=== PATIENT | male | born 1940 | race Caucasian/White ===

== ENCOUNTER 2020-09-21 08:19 | Emergency (ER) | payer MEDICARE ==
[2020-09-21 08:36] VITALS: RESP 18
[2020-09-21] MEDS ORDERED: MORPHINE SULFATE 4 MG/ML SYRINGE IM STA (08:49)
[2020-09-21] MEDS ORDERED: KETOROLAC 15 MG/ML 1 ML VIAL IM STA (08:49)
--- NOTE | 2020-09-21 08:52 | ED ---
General Adult HPI - General Source: patient, RN notes reviewed, old records reviewed Mode of arrival: wheelchair Limitations: no limitations <Anne Moerno - Last Filed: 09/21/20 10:49> <Karen Leon - Last Filed: 09/28/20 23:55> - General Chief complaint: Extremity Injury, Lower Stated complaint: poss pinched nerve Time Seen by Provider: 09/21/20 08:38 - History of Present Illness Initial comments: 80-year-old male presents emergency with 3 days of pain from his right thigh and groin. He reports he was seen at [facility] earlier this week and was diagnosed with a pinched nerve. Patient also reports that 2 weeks ago he received injections for varicose veins of [facility] vein [place]. Patient reports that he has no other falls or trauma to his back. He reports he is having episodes of pain a few weeks ago but that seemed to resolve. Patient states that he's had no fevers or chills. Denies any change in urination or bowel habits. (Anne Moreno) - Related Data Home Medications Medication Instructions Recorded Confirmed Ascorbic Acid [Vitamin C] 500 mg PO DAILY 09/21/20 09/25/20 Aspirin 81 mg PO DAILY 09/21/20 09/25/20 Cholecalciferol [Vitamin D3 (25 1,000 unit PO DAILY 09/21/20 09/25/20 Mcg = 1000 Iu)] Clopidogrel [Plavix] 75 mg PO DAILY 09/21/20 09/25/20 Co Q-10 30mg 30 mg PO TID 09/21/20 09/25/20 Cyclobenzaprine [Flexeril] 5 mg PO HS 09/21/20 09/25/20 Loratadine [Claritin] 10 mg PO DAILY 09/21/20 09/25/20 Magnesium Oxide [Mag-Ox] 400 mg PO DAILY 09/21/20 09/25/20 Metoprolol Succinate [Toprol XL] 25 mg PO DAILY 09/21/20 09/25/20 Multivitamins, Thera [Multivitamin 1 tab PO DAILY 09/21/20 09/25/20 (formulary)] Nitroglycerin Sl Tabs [Nitrostat] 0.4 mg SUBLINGUAL Q5M PRN 09/21/20 09/25/20 [place]-3 Acid Ethyl Esters [Lovaza] 2 gm PO BID 09/21/20 09/25/20 [place]-3/Dha/Epa/Fish Oil [Fish Oil 1 cap PO DAILY 09/21/20 09/25/20 500 mg Softgel] Omeprazole [PriLOSEC] 20 mg PO DAILY 09/21/20 09/25/20 Rosuvastatin [Crestor] 20 mg PO DAILY 09/21/20 09/25/20 glipiZIDE [Glucotrol] 10 mg PO DAILY 09/21/20 09/25/20 Insulin NPH Human Isophane See Protocol SQ HS 09/26/20 09/26/20 [NovoLIN N] Insulin Regular, Human [NovoLIN R] See Protocol SQ AC-TID 09/26/20 09/26/20 Previous Rx's Medication Instructions Recorded Diazepam [Valium] 5 mg PO Q8H PRN 3 Days #9 tab 09/21/20 HYDROcodone/APAP 5-325MG [[place] 1 tab PO Q4HR PRN 3 Days #18 tab 09/21/20 5-325] predniSONE [Deltasone] 20 mg PO DIRECTED #24 tab 09/27/20 predniSONE [Deltasone] 20 mg PO DAILY #24 tab 09/27/20 Allergies Allergy/AdvReac Type Severity Reaction Status Date / Time No Known Allergies Allergy Verified 09/25/20 18:32 Review of Systems ROS Other: All systems not noted in ROS Statement are negative. <Anne Moreno - Last Filed: 09/21/20 10:49> ROS Other: All systems not noted in ROS Statement are negative. <Karen Leon - Last Filed: 09/28/20 23:55> ROS Statement: Those systems with pertinent positive or pertinent negative responses have been documented in the HPI. Past Medical History Past Medical History: Diabetes Mellitus Past Surgical History: Back Surgery, Heart Catheterization With Stent Additional Past Surgical History / Comment(s): stents x 2, skin CA removed, Past Psychological History: No Psychological Hx Reported Smoking Status: Former smoker Past Alcohol Use History: None Reported Past Drug Use History: None Reported <Anne Moreno - Last Filed: 09/21/20 10:49> General Exam Limitations: no limitations General appearance: alert, in no apparent distress Head exam: Present: atraumatic, normocephalic, normal inspection Eye exam: Present: normal appearance, PERRL, EOMI. Absent: scleral icterus, conjunctival injection, periorbital swelling ENT exam: Present: normal exam, mucous membranes moist Neck exam: Present: normal inspection. Absent: tenderness, meningismus, lymphadenopathy Respiratory exam: Present: normal lung sounds bilaterally. Absent: respiratory distress, wheezes, rales, rhonchi, stridor Cardiovascular Exam: Present: regular rate, normal rhythm, normal heart sounds. Absent: systolic murmur, diastolic murmur, rubs, gallop, clicks GI/Abdominal exam: Present: soft, normal bowel sounds. Absent: distended, tende rness, guarding, rebound, rigid Extremities exam: Present: normal inspection, full ROM, normal capillary refill. Absent: tenderness, pedal edema, joint swelling, calf tenderness Back exam: Present: normal inspection, tenderness (Patient has tenderness over the lumbar spine) Neurological exam: Present: alert, oriented X3, CN II-XII intact Psychiatric exam: Present: normal affect, normal mood Skin exam: Present: warm, dry, intact, normal color. Absent: rash <Anne Moreno - Last Filed: 09/21/20 10:49> - General Exam Comments Initial Comments: 80 year old male no distress. (Anne Moreno) Course Vital Signs 09/21/20 09/21/20 08:31 11:07 Temperature 98.0 F 97.7 F Pulse Rate 79 72 Respiratory 18 18 Rate Blood Pressure 151/71 136/72 O2 Sat by Pulse 98 98 Oximetry Medical Decision Making - Radiology Data Radiology results: report reviewed <Anne Moreno - Last Filed: 09/21/20 10:49> <Karen Leon - Last Filed: 09/28/20 23:55> - Medical Decision Making 80-year-old male presents emergency department today with a few days of right- sided pain with radiation down the right leg. He reports it seems to more concerning on the leg rather than his back. Patient's sinus with pinched nerve last week. He is been taking steroids and muscle relaxers with no relief of symptoms. Is given IM pain medication. They were concerned of possible blood clot patient's history of vein injections. Leg is not red or swollen. at this time but ultrasound was completed and negative for DVT. Computed tomography scan shows no evidence of compression fractures. Does have evidence of fo raminal narrowing on the right lumbar spine area. I discussed Patient is to follow-up with orthopedic back specialist. Discussed return parameters. We'll discharge Patient with pain medication. (Anne Moreno) I was available for consultation in the emergency department. The history and physical exam were done by the midlevel provider. I was consulted for this patients care. I reviewed the case with the midlevel provider and based on their presentation of the patient, I agree with the assessment, medical decision making and plan of care as documented. Chart was dictated using [email or web address] dictation software. Attempts were made to correct any dictation errors however some typographical errors may persist. Patient seen during the Covid-19 pandemic. (Karen Leon) - Radiology Data Loss of normal curvature with multilevel degenerative changes to tell above. Tension and lumbar levels of increased right-sided general changes are present. No paraspinal masses are identified. Lumbar segments are intact. Ultrasound is negative for DVT in the right leg (Anne Moreno) Disposition Is patient prescribed a controlled substance at d/c from ED?: Yes If prescribed controlled substance>3 days was MAPS reviewed?: Prescribed <3 Days If opioid is for acute pain is fill amount 7 days or less?: Yes If Rx opioid, was Start Talking consent form obtained?: Yes Time of Disposition: 10:52 <Anne Moreno - Last Filed: 09/21/20 10:49> <Karen Leon - Last Filed: 09/28/20 23:55> Clinical Impression: Right sided sciatica Disposition: HOME SELF-CARE Condition: Good Instructions (If sedation given, give patient instructions): Sciatica (ED), Lumbar Radiculopathy (ED) Additional Instructions: Take the medications as prescribed. Recommended following up with orthopedic back specialist. Return to the ED if any alarming signs or symptoms occur. Prescriptions: HYDROcodone/APAP 5-325MG [[place] 5-325] 1 tab PO Q4HR PRN 3 Days #18 tab PRN Reason: Pain Diazepam [Valium] 5 mg PO Q8H PRN 3 Days #9 tab PRN Reason: Muscle Spasm Referrals: Bladimir Villalba MD [Primary Care Provider] - 1-2 days Cristopher Artis DO [Doctor of Osteopathic Medicine] - 1-2 days Pool Pryor DO [Doctor of Osteopathic Medicine] - 1-2 days
--- NOTE | 2020-09-21 09:41 | US ---
EXAMINATION TYPE: US venous doppler duplex LE RT DATE OF EXAM: 09/21/2020 9:29 AM COMPARISON: NONE CLINICAL HISTORY: r/o dvt. Pain right thigh x3 days. Patient denies leg swelling. SIDE PERFORMED: Right TECHNIQUE: The lower extremity deep venous system is examined utilizing real time linear array sonog bert with graded compression, doppler sonography and color-flow sonography. VESSELS IMAGED: Common Femoral Vein Deep Femoral Vein Greater Saphenous Vein * Femoral Vein Popliteal Vein Small Saphenous Vein * Proximal Calf Veins (* superficial vessels) Right Leg: Negative for DVT IMPRESSION: No evidence for DVT at this time.
--- NOTE | 2020-09-21 10:29 | CT ---
EXAMINATION TYPE: CT lumbar spine wo con DATE OF EXAM: 09/21/2020 9:49 AM COMPARISON: None. HISTORY: Right leg pain and numbness. CT DLP: 848.3 mGycm Automated exposure control for dose reduction was used. Unenhanced CT of the lumbar spine was performed. Bone and soft tissue window settings are submitted as well as coronal and sagittal reconstructions. There are 5 lumbar-type vertebra. There is levoconvex scoliosis centered at L2-L3 level. There is mod erate to severe disc space narrowing with some ossific bridging at the L2-L3 level. Loss of normal lg mbar lordosis on sagittal images. Vertebral body heights maintained. Mild to moderate disc space narr owing with posterior spur disc complex at L4-L5 level. 2 small scattered hemangiomas including larges t hemangioma at the L5 vertebra. Review of axial images show T12-L1 level to appear within normal limits. Axial images at the L1-L2 level show mild marked facet degenerative changes and mild to moderate broa d disc bulge with effacement of anterior and posterior lateral thecal sac. There is mild to moderate left-sided anterior inferior neural foraminal narrowing. Axial images at L2-L3 level shows some ossific fusion with posterior bony projection is effacing ante rior thecal sac. Moderate facet arthropathy right greater than left. There is asymmetric mild right s ided neural foraminal narrowing. Axial images at the L3-L4 level show moderate to advanced right greater than left facet arthropathy w ith right foraminal/lateral disc protrusion on axial image 52 causing moderate inferior neural forami nal narrowing. Left-sided neural foramen is patent. Axial images at the L4-L5 level show [id number] facet arthropathy bilaterally. Posterior spurri ng greatest on the left effaces anterolateral thecal sac and causes asymmetric mild to moderate left greater than right bilateral neural foraminal narrowing. Axial images at the L5-S1 levels show mild facet arthropathy bilaterally. Mild to moderate calcified plaque of the abdominal aorta extends into branch vessels. IMPRESSION: Loss of normal curvature with multilevel degenerative changes as detailed above. Attentio n to mid lumbar levels with increased right-sided degenerative changes are present. No paraspinal masses are identified. Lumbar segments are intact.
[2020-09-21] MEDS ORDERED: ACET/COD 300 MG/30 MG STARTER PACK 6 TAB BTL PO STA (10:49)
[2020-09-21 11:08] VITALS: BP 136/72; PULSE 72; TEMP 97.7
== END 2020-09-21 11:08 | disposition home or self-care (01) ==
LOC: EC 08:19
DX: M54.31 Sciatica, right side (principal); M79.651 Pain in right thigh; Z87.891 Personal history of nicotine dependence
CPT/HCPCS: 99284 ×2; 96372 ×3; 93971; 72131; J2270; J1885

== ENCOUNTER 2020-09-25 16:15 | Inpatient (IN) | payer MEDICARE ==
[2020-09-25] MEDS ORDERED: SODIUM CHLORIDE 0.9% 1,000 ML IV STA (16:35)
--- NOTE | 2020-09-25 17:18 | ED ---
General Adult HPI - General Chief complaint: Back Pain/Injury Stated complaint: Back Pain Time Seen by Provider: 09/25/20 16:34 Source: patient Mode of arrival: wheelchair Limitations: no limitations - History of Present Illness Initial comments: Dictation was produced using [employer] dictation software. please excuse any grammatical, word or spelling errors. This patient was cared for during a federal and state declared state of emergency secondary to Covid 19 Chief Complaint: 80-year-old male presents today for worsening back pain History of Present Illness: Is a 80-year-old male he has past medical history of back surgery. He states that he's been dealing with worsening back pain for the last several days now. Patient was seen here in our emergency department 4 days ago where lumbar CT and venous Doppler study was obtained. Lumbar CT did not show an acute processes however did show multilevel degenerative changes. He w as given medications and outpatient follow-up with spine surgeon. Patient states that his pain recurred and he went to [facility] were CT was also performed and found to be the same without any acute processes. He is given follow-up with neuro spine surgery. Patient denies any saddle anesthesia, no stool or bladder incontinence. The ROS documented in this emergency department record has been reviewed and confirmed by me. Those systems with pertinent positive or negative responses have been documented in the HPI. All other systems are other negative and/or noncontributory. PHYSICAL EXAM: General Impression: Alert and oriented x3, not in acute distress HEENT: Normocephalic atraumatic, extra-ocular movements intact, pupils equal and reactive to light bilaterally, mucous membranes moist. Cardiovascular: Heart regular rate and rhythm Chest: Able to complete full sentences, no retractions, no tachypnea Abdomen: abdomen soft, non-tender, non-distended, no organomegaly Musculoskeletal: Pulses present and equal in all extremities, no peripheral edema, positive straight leg test, tenderness to palpation over the right lower back Motor: no focal deficits noted Neurological: CN II-XII grossly intact, no focal motor or sensory deficits noted Skin: Intact with no visualized rashes Psych: Normal affect and mood ED course: 80-year-old male presents today with back pain. Patient was not tolerating his pain on outpatient basis and could not get a sooner appointment with autism motor specialist. He does have a family member that works at this and was encouraged to come to the emergency room for admission. Patient denies any red flag symptoms at this time. Case is discussed with Dr. Morgan who got in contact with Dr. rPyor from spine surgery who will be available tomorrow for con sultation. Patient be admitted to [facility] hospitalist group for pain control and orthopedic spine surgery will be consulted. - Related Data Home Medications Medication Instructions Recorded Confirmed Ascorbic Acid [Vitamin C] 500 mg PO DAILY 09/21/20 09/21/20 Aspirin 81 mg PO DAILY 09/21/20 09/21/20 Cholecalciferol [Vitamin D3 (25 1,000 unit PO DAILY 09/21/20 09/21/20 Mcg = 1000 Iu)] Clopidogrel [Plavix] 75 mg PO DAILY 09/21/20 09/21/20 Co Q-10 30mg 30 mg PO TID 09/21/20 09/21/20 Cyclobenzaprine [Flexeril] 5 mg PO HS 09/21/20 09/21/20 Humulin (Unknown) 1 dose SQ DIRECTED 09/21/20 09/21/20 Insulin Detemir [Levemir Flextouch] 30 units SQ BID 09/21/20 09/21/20 Loratadine [Claritin] 10 mg PO DAILY 09/21/20 09/21/20 Magnesium Oxide [Mag-Ox] 400 mg PO DAILY 09/21/20 09/21/20 Metoprolol Succinate [Toprol XL] 25 mg PO DAILY 09/21/20 09/21/20 Multivitamins, Thera [Multivitamin 1 tab PO DAILY 09/21/20 09/21/20 (formulary)] Nitroglycerin Sl Tabs [Nitrostat] 0.4 mg SUBLINGUAL Q5M PRN 09/21/20 09/21/20 [place]-3 Acid Ethyl Esters [Lovaza] 2 gm PO BID 09/21/20 09/21/20 [place]-3/Dha/Epa/Fish Oil [Fish Oil 1 cap PO DAILY 09/21/20 09/21/20 500 mg Softgel] Omeprazole [PriLOSEC] 20 mg PO DAILY 09/21/20 09/21/20 Rosuvastatin [Crestor] 20 mg PO DAILY 09/21/20 09/21/20 glipiZIDE [Glucotrol] 10 mg PO DAILY 09/21/20 09/21/20 methylPREDNISolone [Medrol Dose See Taper PO DIRECTED 09/21/20 09/21/20 Pack] Previous Rx's Medication Instructions Recorded Diazepam [Valium] 5 mg PO Q8H PRN 3 Days #9 tab 09/21/20 HYDROcodone/APAP 5-325MG [[place] 1 tab PO Q4HR PRN 3 Days #18 tab 09/21/20 5-325] Lidocaine 5% Patch [Lidoderm] 1 patch TOPICAL DAILY #30 patch 09/21/20 Allergies Allergy/AdvReac Type Severity Reaction Status Date / Time No Known Allergies Allergy Verified 09/25/20 16:33 Review of Systems ROS Statement: Those systems with pertinent positive or pertinent negative responses have been documented in the HPI. ROS Other: All systems not noted in ROS Statement are negative. Past Medical History Past Medical History: Diabetes Mellitus History of Any Multi-Drug Resistant Organisms: None Reported Past Surgical History: Back Surgery, Heart Catheterization With Stent Additional Past Surgical History / Comment(s): stents x 2, skin CA removed, Past Psychological History: No Psychological Hx Reported Smoking Status: Former smoker Past Alcohol Use History: None Reported Past Drug Use History: None Reported General Exam Limitations: no limitations Course Vital Signs 09/25/20 16:27 Temperature 98.2 F Pulse Rate 85 Respiratory 18 Rate Blood Pressure 144/76 O2 Sat by Pulse 98 Oximetry Disposition Clinical Impression: Back pain Disposition: ADMITTED IP TO THIS HOSP Condition: Fair Referrals: Bladimir Villalba MD [Primary Care Provider] - 1-2 days Decision Time: 17:21
[2020-09-25] MEDS ORDERED: NALOXONE 0.4 MG/ML 1 ML VIAL IV PRN (17:19)
[2020-09-25] MEDS ORDERED: MORPHINE SULFATE 4 MG/ML SYRINGE IV PRN (17:19)
[2020-09-25] MEDS ORDERED: ONDANSETRON 4 MG/2 ML VIAL IVP PRN (17:19)
[2020-09-25] MEDS ORDERED: ACETAMINOPHEN TAB 325 MG TAB PO PRN (17:19)
[2020-09-25 17:23] LABS: Basophils % (A) 0 %; Eosinophils # (A) 0.1 k/uL (0-0.7); Eosinophils % (A) 1 %; HGB 15.2 gm/dL (13.0-17.5); Lymphocytes # (A) 1.7 k/uL (1.0-4.8); Lymphocytes % (A) 17 %; MCH 30.7 pg (25.0-35.0); MCHC 34.5 g/dL (31.0-37.0); Mean Platelet Volume 7.2; Monocytes # (A) 0.6 k/uL (0-1.0); Monocytes % (A) 6 %; Neutrophils # (A) 7.1 k/uL (1.3-7.7); Neutrophils % (A) 73 %; Platelet Count 163 k/uL (150-450); RBC 4.94 m/uL (4.30-5.90); RDW 12.8 % (11.5-15.5); WBC 9.7 k/uL (3.8-10.6)
[2020-09-25 17:32] LABS: INR 0.9 (<1.2); Partial Thromboplastin Time 25.9 sec (22.0-30.0); Prothrombin Time 9.9 sec (9.0-12.0)
[2020-09-25 17:37] LABS: Calcium 9.8 mg/dL (8.4-10.2); Potassium 4.8 mmol/L (3.5-5.1)
--- NOTE | 2020-09-25 18:29 | XR ---
EXAMINATION TYPE: XR chest 1V portable DATE OF EXAM: 09/25/2020 COMPARISON: NONE HISTORY: Back pain TECHNIQUE: Single view FINDINGS: Heart is normal. Lungs are clear. Diaphragm is normal. Bony thorax appears normal. Pulmonar y vascularity is normal. IMPRESSION: Normal chest. Normal heart.
[2020-09-25] MEDS: SODIUM CHLORIDE 0.9% 1,000 ML IV SCH (18:33)
[2020-09-25] MEDS ORDERED: diazePAM 5 MG TAB PO PRN (19:35)
[2020-09-25] MEDS ORDERED: NITROGLYCERIN SL TABS 0.4 MG TAB SUBLINGUAL PRN (19:35)
[2020-09-25] MEDS ORDERED: TEMAZEPAM 15 MG CAP PO PRN (19:38)
[2020-09-25] MEDS ORDERED: HYDROmorphone 0.5 MG/0.5 ML SYRINGE IVP PRN (19:38)
[2020-09-25 20:42] LABS: Glucose,Whole Blood 209 mg/dL (75-99)
[2020-09-25] MEDS: methylPREDNISolone SOD SUCCI 125 MG/2 ML VIAL IV SCH (20:44)
[2020-09-25] MEDS: NON FORMULARY DRUG (Omega-3 Acid Ethyl Esters [Lovaza] 1 GM Capsule) PO SCH (21:11)
[2020-09-25] MEDS: INSULIN DETEMIR (LEVEMIR) 100 UNIT/ML SYR SQ SCH (21:19)
[2020-09-25] MEDS: HEPARIN SODIUM,PORCINE 5,000 UNIT/ML 1 ML VIAL SQ SCH (21:21)
[2020-09-25] MEDS: HYDROcodone/APAP 5-325MG 1 EACH TAB PO PRN (21:22)
[2020-09-25] MEDS: CYCLOBENZAPRINE 5 MG TAB PO SCH (21:22)
[2020-09-25 21:30] LABS: Appearance,Urine Clear (Clear); Bilirubin,Urine Negative (Negative); Blood,Urine Small (Negative); Color,Urine Light Yellow; Glucose,Urine (UA) 3+ (Negative); Hyaline Casts,Urine 3 /lpf (0-2); Ketones,Urine Negative (Negative); Leukocyte Esterase,Urine Negative (Negative); Mucus,Urine Rare /hpf; Nitrite,Urine Negative (Negative); PH, Urine 5.5 (5.0-8.0); Protein,Urine 1+ (Negative); RBC,Urine 2 /hpf (0-5); Specific Gravity,Urine 1.012 (1.001-1.035); Urobilinogen,Urine <2.0 mg/dL (<2.0); WBC,Urine <1 /hpf (0-5)
[2020-09-25] MEDS ORDERED: CO Q10 PO SCH (22:00)
[2020-09-26] MEDS: methylPREDNISolone SOD SUCCI 125 MG/2 ML VIAL IV SCH ×4 (02:13→18:41)
--- NOTE | 2020-09-26 02:47 | HP ---
HISTORY AND PHYSICAL CHIEF COMPLAINTS: Back pain and right leg pain. HISTORY OF PRESENT ILLNESS: This 80-year-old gentleman with a past medical history of multiple medical problems including diabetes mellitus, history of back surgery, history of CAD, stent being followed Dr. Bladmiir Villalba in the outpatient setting was admitted to [facility] with complaints of back pain, which was radiating to the right leg for the last 7 days. Patient unable to lie down. Patient is sitting in a chair for the last 4 days last week and the patient apparently had previous surgery from [place] back surgeon about 8 years ago. The patient had recently lumbar CT scan about 4 days ago in the ER which showed loss of normal compression and multilevel DJD. No paraspinal masses were noted. The patient admitted for further evaluation and treatment. There is no history of fever, rigors. No history of headache, loss of consciousness or seizures. PAST MEDICAL HISTORY: History of diabetes mellitus, back surgery, CAD stent, history of nicotine dependence. MEDICATIONS: Medications prior to admission, home medications are: 1. Valium. 2. Flexeril. 3. Toprol. 4. Hydrocodone. 5. Vitamin C. 6. Crestor. 7. Prilosec. 8. Fish oil. 9. Lovaza. 10.Nitrostat. 11.Multivitamins. 12.Magnesium oxide. 13.Claritin. 14.Glucotrol. 15.Levemir. 16.Plavix. 17.Vitamin D3. 18.Aspirin. ALLERGIES: None. FAMILY HISTORY: No history of heart disease or strokes in the family. SOCIAL HISTORY: No history of smoking. No history of alcohol intake. REVIEW OF SYSTEMS: ENT: No diminished hearing or diminished vision. CARDIOVASCULAR SYSTEM: No angina. RESPIRATORY SYSTEM: No cough. GI: As mentioned earlier. : No dysuria. NERVOUS SYSTEM: No numbness or weakness. ALLERGY/IMMUNOLOGY: No asthma or hayfever. MUSCULOSKELETAL: As mentioned earlier. HEMATOLOGY/ONCOLOGY: No history of anemia. ENDOCRINE: No history of diabetes or hypothyroidism. CONSTITUTIONAL: As mentioned earlier. DERMATOLOGY: Negative. RHEUMATOLOGY: Negative. PSYCHIATRY: As mentioned earlier. PHYSICAL EXAMINATION: The patient is alert and oriented x3. Pulse is 85, blood pressure 144/76, respiration 18, temperature 98.2, pulse ox 98% on room air. HEENT: Conjunctivae normal. NECK: No jugular venous distention. CARDIOVASCULAR: S1, S2 muffled. RESPIRATORY: Breath sounds diminished at the bases. No rhonchi, no crackles. ABDOMEN: Soft. Nontender. No mass palpable. LEGS: Straight leg raising test is positive on the right side. NERVOUS SYSTEM: No focal motor or sensory deficits. LYMPHATICS: No lymphadenopathy of the neck, axillae or groin. SKIN: No ulcer, rash or bleeding. JOINTS: No active deforming arthropathy. LABS: CBC within normal limits. Sodium 134 and creatinine is 1.77. The baseline creatinine was not available. ASSESSMENT: 1. Severe back pain, degenerative joint disease and right radiculopathy. 2. Severe gait dysfunction. 3. Failure of outpatient treatment. 4. Hyponatremia. 5. Increased creatinine with acute renal failure. 6. Diabetes mellitus type 2 uncontrolled with hyperglycemia. 7. History of back surgery. 8. History of coronary artery disease, stent. 9. Remote history of nicotine dependence. 10.FULL CODE. RECOMMENDATIONS AND DISCUSSION: This 80-year-old gentleman who presented with multiple complex medical issues, we will monitor the patient closely. Continue the current medications, continue symptomatic treatment. Will initiate intravenous steroids and I would also recommend insulin drip also if the sugars are more than 300. Otherwise symptomatic treatment. Dr. Pryor will be consulted. Resume the home medications. DVT prophylaxis. Prognosis guarded because of multiple complex medical issues. Further recommendations to follow. A copy of dictation forwarded to Dr. Jm Villalba who is the primary physician. MMODL / IJN: [id number] /
[2020-09-26 06:48] LABS: Basophils % (A) 0 %; Eosinophils % (A) 0 %; HCT 42.8 % (39.0-53.0); HGB 14.6 gm/dL (13.0-17.5); Lymphocytes # (A) 0.6 k/uL (1.0-4.8); Lymphocytes % (A) 6 %; MCH 30.3 pg (25.0-35.0); MCV 89.2 fL (80.0-100.0); Mean Platelet Volume 7.2; Monocytes # (A) 0.2 k/uL (0-1.0); Monocytes % (A) 2 %; Neutrophils # (A) 9.3 k/uL (1.3-7.7); Neutrophils % (A) 91 %; Platelet Count 138 k/uL (150-450); RDW 12.7 % (11.5-15.5); WBC 10.2 k/uL (3.8-10.6)
[2020-09-26 06:58] LABS: Calcium 9.2 mg/dL (8.4-10.2)
[2020-09-26 07:01] LABS: Glucose,Whole Blood 372 mg/dL (75-99)
[2020-09-26] MEDS: INSULIN DETEMIR (LEVEMIR) 100 UNIT/ML SYR SQ SCH (08:36)
[2020-09-26] MEDS: CHOLECALCIFEROL 1,000 UNIT TAB PO SCH (08:39)
[2020-09-26] MEDS: ATORVASTATIN 40 MG TAB PO SCH (08:39)
[2020-09-26] MEDS: MAGNESIUM OXIDE 400 MG TAB PO SCH (08:39)
[2020-09-26] MEDS: CLOPIDOGREL 75 MG TAB PO SCH (08:39)
[2020-09-26] MEDS: ASPIRIN 81 MG PO SCH (08:40)
[2020-09-26] MEDS: LORATADINE 10 MG TAB PO SCH (08:40)
[2020-09-26] MEDS: NON FORMULARY DRUG (Omega-3 Acid Ethyl Esters [Lovaza] 1 GM Capsule) PO SCH ×2 (08:45→21:27)
[2020-09-26] MEDS: METOPROLOL SUCCINATE (ER) 25 MG TAB.ER.24H PO SCH (08:50)
[2020-09-26] MEDS: glipiZIDE 10 MG TAB PO SCH (08:51)
[2020-09-26] MEDS: ASCORBIC ACID 500 MG TAB PO SCH (08:51)
[2020-09-26] MEDS: HEPARIN SODIUM,PORCINE 5,000 UNIT/ML 1 ML VIAL SQ SCH ×2 (08:51→21:46)
[2020-09-26] MEDS: MULTIVITAMINS, THERA 1 EACH TAB PO SCH (08:51)
[2020-09-26] MEDS ORDERED: NON FORMULARY DRUG (Omega-3/Dha/Epa/Fish Oil [Fish Oil 500 Mg Softgel] 1 EACH Capsule) PO SCH (09:00)
[2020-09-26] MEDS ORDERED: SODIUM POLYSTYRENE SULFONATE 15 GM/60 ML BOTTLE PO STA (10:51)
[2020-09-26] MEDS ORDERED: INSULIN ASPART (NovoLOG) 100 UNIT/ML VIAL SQ SCH (12:30)
[2020-09-26 12:57] LABS: Glucose,Whole Blood 569 mg/dL (75-99)
[2020-09-26] MEDS ORDERED: INSULIN REGULAR BOLUS (FROM DRIP BAG) IV PRN (13:07)
[2020-09-26] MEDS ORDERED: INSULIN REGULAR 100 UNIT in SODIUM CHLORIDE 0.9% 100 ML IV SCH (13:15)
[2020-09-26] MEDS ORDERED: INSULIN REGULAR BOLUS (FROM DRIP BAG) IV ONE (13:29)
[2020-09-26 14:11] LABS: Glucose,Whole Blood >600 mg/dL (75-99)
[2020-09-26] MEDS: INSULIN REGULAR 100 UNIT in SODIUM CHLORIDE 0.9% 100 ML IV SCH (14:11)
--- NOTE | 2020-09-26 14:31 | P.CNOR ---
History of Present Illness - [facility] Consult date: 09/26/20 History of present illness: This patient is a 80-year-old male with past medical history of diabetes and CAD with stent that presented to [facility] yesterday with complaints of low back pain with radiation into his right leg. The patient states he has a history of back surgery about 8-10 years ago by a surgeon in [place]. He states he has not seen the surgeon in years, patient states he has had no issues with back pain or leg pain until about a week-two weeks ago. Patient states there was no fall or injuries. He states his pain began in the low back and began to radiate into the right thigh. He states he initially contacted his PCP about this pain. Patient also states he was seen at [facility] ER last week, and was given a shot of medication and discharged. He states his pain continued, therefore he came to [facility] ER on Saturday09/21/20, CT of the lumbar spine was performed and revealed multilevel degenerative changes, Doppler ultrasound of the right lower extremity revealed no evidence for DVT. Patient was discharged with instructions to follow-up with a spine surgeon on an outpatient basis. Patient states his pain became so severe this morning, he again returned to the ER. Patient was admitted under the care of internal medicine with a consult placed to Dr. Pryor for evaluation of his continuing back pain. At the time of my exam, patient is complaining of right thigh pain, and very mild low back pain. He states his pain has improved since admission to the hospital today. He denies fevers, chills, nausea, vomiting, feelings of generalized malaise. He states besides his pain, he is feeling well. He denies hip or knee pain, he denies any significant pain with ambulation. He denies saddle paresthesias, he denies bowel or bladder incontinence. Patient has no add itional complaints at the time of my exam. Past Medical History Past Medical History: Diabetes Mellitus History of Any Multi-Drug Resistant Organisms: None Reported Past Surgical History: Back Surgery, Heart Catheterization With Stent Additional Past Surgical History / Comment(s): stents x 2, skin CA removed, Past Psychological History: No Psychological Hx Reported Smoking Status: Former smoker Past Alcohol Use History: None Reported Past Drug Use History: None Reported Medications and Allergies Home Medications Medication Instructions Recorded Confirmed Type Ascorbic Acid [Vitamin C] 500 mg PO DAILY 09/21/20 09/25/20 History Aspirin 81 mg PO DAILY 09/21/20 09/25/20 History Cholecalciferol [Vitamin D3 (25 1,000 unit PO DAILY 09/21/20 09/25/20 History Mcg = 1000 Iu)] Clopidogrel [Plavix] 75 mg PO DAILY 09/21/20 09/25/20 History Co Q-10 30mg 30 mg PO TID 09/21/20 09/25/20 History Cyclobenzaprine [Flexeril] 5 mg PO HS 09/21/20 09/25/20 History Diazepam [Valium] 5 mg PO Q8H PRN 3 Days #9 tab 09/21/20 09/25/20 Rx HYDROcodone/APAP 5-325MG [[place] 1 tab PO Q4HR PRN 3 Days #18 tab 09/21/20 09/25/20 Rx 5-325] Loratadine [Claritin] 10 mg PO DAILY 09/21/20 09/25/20 History Magnesium Oxide [Mag-Ox] 400 mg PO DAILY 09/21/20 09/25/20 History Metoprolol Succinate [Toprol XL] 25 mg PO DAILY 09/21/20 09/25/20 History Multivitamins, Thera [Multivitamin 1 tab PO DAILY 09/21/20 09/25/20 History (formulary)] Nitroglycerin Sl Tabs [Nitrostat] 0.4 mg SUBLINGUAL Q5M PRN 09/21/20 09/25/20 History [place]way-3 Acid Ethyl Esters [Lovaza] 2 gm PO BID 09/21/20 09/25/20 History [place]-3/Dha/Epa/Fish Oil [Fish Oil 1 cap PO DAILY 09/21/20 09/25/20 History 500 mg Softgel] Omeprazole [PriLOSEC] 20 mg PO DAILY 09/21/20 09/25/20 History Rosuvastatin [Crestor] 20 mg PO DAILY 09/21/20 09/25/20 History glipiZIDE [Glucotrol] 10 mg PO DAILY 09/21/20 09/25/20 History Insulin NPH Human Isophane See Protocol SQ HS 09/26/20 09/26/20 History [NovoLIN N] Insulin Regular, Human [NovoLIN R] See Protocol SQ AC-TID 09/26/20 09/26/20 History Allergies Allergy/AdvReac Type Severity Reaction Status Date / Time No Known Allergies Allergy Verified 09/25/20 18:32 Physical Examination On examination, the patient is sitting up in the bedside chair in no apparent distress. He is alert and orientated 3. His head appears normocephalic and atraumatic. His breathing appears nonlabored. On inspection of the lower back, there is no erythema, ecchymosis, skin discoloration. There were no open wounds or lacerations. There are no areas of warmth or fluctuance. There is a well-healed incision in the area of the lumbar spine with no evidence of infection. There is very mild pain to palpation of the lumbar spine. Non-tender to palpation of the cervical and thoracic spine. No obvious deformities or step- offs. No pain to palpation in the right hip, thigh, knee. No pain with passive range of motion of the right hip, knee, or ankle. Patient is able to perform independent straight leg raises bilaterally, without significant back pain. Patient has good strength with dorsiflexion and plantar flexion of the bilateral ankles, no neurologic deficits noted. Motor and sensory function appear intact of the bilateral lower extremities. The bilateral lower extremities are warm and well-perfused with brisk capillary refill distally. The bilateral calves are soft and non-tender to palpation bilaterally. Results CT lumbar spine wo contrast 09/21/20: Per report- loss of normal curvature with multilevel disc degeneration. Attention to mid lumbar levels with increased right-sided degenerative changes are present. No paraspinal masses identified. Lumbar segments are intact. Doppler US right lower extremity 09/21/20: Negative for DVT. - Labs Labs: Abnormal Lab Results - Last 24 Hours (Table) 09/25/20 09/25/20 09/25/20 Range/Units 17:02 17:02 20:40 Plt Count (150-450) k/uL Neutrophils # (1.3-7.7) k/uL Lymphocytes # (1.0-4.8) k/uL ESR 21 H (0-15) mm/hr Sodium 134 L (137-145) mmol/L Potassium (3.5-5.1) mmol/L BUN 52 H (9-20) mg/dL Creatinine 1.77 H (0.66-1.25) mg/dL Glucose 347 H (74-99) mg/dL POC Glucose (mg/dL) 209 H (75-99) mg/dL Urine Protein (Negative) Urine Glucose (UA) (Negative) Urine Blood (Negative) Hyaline Casts (0-2) /lpf Urine Mucus (None) /hpf 09/25/20 09/26/20 09/26/20 Range/Units 21:00 05:15 05:15 Plt Count 138 L (150-450) k/uL Neutrophils # 9.3 H (1.3-7.7) k/uL Lymphocytes # 0.6 L (1.0-4.8) k/uL ESR (0-15) mm/hr Sodium 131 L (137-145) mmol/L Potassium 6.0 H (3.5-5.1) mmol/L BUN 52 H (9-20) mg/dL Creatinine 1.58 H (0.66-1.25) mg/dL Glucose 419 H (74-99) mg/dL POC Glucose (mg/dL) (75-99) mg/dL Urine Protein 1+ H (Negative) Urine Glucose (UA) 3+ H (Negative) Urine Blood Small H (Negative) Hyaline Casts 3 H (0-2) /lpf Urine Mucus Rare H (None) /hpf 09/26/20 09/26/20 Range/Units 06:59 12:54 Plt Count (150-450) k/uL Neutrophils # (1.3-7.7) k/uL Lymphocytes # (1.0-4.8) k/uL ESR (0-15) mm/hr Sodium (137-145) mmol/L Potassium (3.5-5.1) mmol/L BUN (9-20) mg/dL Creatinine (0.66-1.25) mg/dL Glucose (74-99) mg/dL POC Glucose (mg/dL) 372 H 569 H (75-99) mg/dL Urine Protein (Negative) Urine Glucose (UA) (Negative) Urine Blood (Negative) Hyaline Casts (0-2) /lpf Urine Mucus (None) /hpf H & H 09/25/20 09/26/20 Range/Units 17:02 05:15 Hgb 15.2 14.6 (13.0-17.5) gm/dL Hct 44.0 42.8 (39.0-53.0) % Coagulation 09/25/20 Range/Units 17:02 INR 0.9 (<1.2) Result Diagrams: 09/26/20 05:15 09/26/20 05:15 Assessment and Plan Assessment: Low back pain with right lower extremity radiculopathy History of lumbar spine surgery 8-10 years ago Plan: - The patient was discussed with Dr. Pryor. Recommend obtaining a lumbar spine MRI w/wo contrast for further evaluation, which was ordered today. We will await the results and make recommendations at that time. - Medical management per admitting team.
[2020-09-26 14:43] LABS: Glucose,Whole Blood 535 mg/dL (75-99)
[2020-09-26 15:13] LABS: Glucose,Whole Blood 469 mg/dL (75-99)
[2020-09-26 15:54] LABS: Glucose,Whole Blood 423 mg/dL (75-99)
[2020-09-26 16:11] LABS: Glucose,Whole Blood 374 mg/dL (75-99)
[2020-09-26 17:54] LABS: Glucose,Whole Blood 381 mg/dL (75-99)
[2020-09-26] MEDS: SODIUM CHLORIDE 0.9% 1,000 ML IV SCH (18:41)
[2020-09-26 18:45] LABS: Glucose,Whole Blood 476 mg/dL (75-99)
--- NOTE | 2020-09-26 19:11 | MR ---
EXAMINATION TYPE: MR lumbar spine wo/w con DATE OF EXAM: 09/26/2020 COMPARISON: CT 09/21/2020 HISTORY: Back pain and weakness, prev CT on pacs TECHNIQUE: Multiplanar, multisequence images of the lumbar spine were acquired utilizing 7ml mL intravenous Gada vist gadolinium contrast. L1-L2: Posterior disc bulge causes anterior mass effect on the thecal sac. Facet arthropathy causes p osterior lateral mass effect on the thecal sac causing a trefoil appearance, circumferential extensio n of endplate discomfort encroaches somewhat on the neural foramina greater on the left than on the r ight. No significant stenosis. L2-L3: Posterior extension endplate disc complex causes mild anterior mass effect on the thecal sac. Facet arthropathy with hypertrophy ligamentum flavum causes posterior lateral mass effect on the thec al sac, no significant spinal stenosis or foraminal encroachment. L3-L4: Mild listhesis contributes to cause some moderate to severe spinal stenosis, there is facet ar thropathy causing posterior lateral mass effect on the thecal sac, circumferential posterior disc bul ge causes anterior mass effect on the thecal sac. Foraminal encroachment is greater on the right like ly contributed by the scoliosis. L4-L5: Circumferential extension endplate disc complex results in foraminal encroachment greater on t he left. There is facet arthropathy causing some mild lateral mass effect on the thecal sac. Circumfe rential disc bulge extends towards the left foramen, there is a lateral disc herniation suspected, sa gittal image 4 and axial image #10, no central stenosis. L5-S1: Facet arthropathy changes present. No significant central stenosis. No evident foraminal encro achment. Circumferential posterior disc bulge extends posteriorly is mild Lumbar segments are intact. There is a spinal curvature. Multilevel spondylosis is present. Probable hemangioma present within the L5 and L4, and T12 vertebral body. Endplate discogenic marrow signal c hanges are present. Loss of disc height signal is greatest at L2-3 with some calcification along the disc space. Minimal anterolisthesis grade 1 L3-4. Urinary bladder is markedly distended. No paraspina l masses are identified. Conus medullaris has a normal appearance. Partial laminectomies questions a t L4, L5. No abnormal enhancement following contrast administration. There is contrast enhancement no robert likely related to patient's prior laminectomies posteriorly IMPRESSION: Correlate for urinary retention. Degenerative disc disease and facet arthropathy, spinal stenosis mos t notable at L3-4. Multilevel foraminal encroachment. Additional findings above. There is a spinal cu rvature. A [place] level critical message alert has been initiated for Pool Pryor DO via the [facility] Results System on 09/26/2020 7:07 PM. This message alert has been sent to Pool Pryor DO via the preferences provided by the clinician for the receipt of Radiology Critical Findings. Mess age ID [id number].
--- NOTE | 2020-09-26 19:30 | PN ---
PROGRESS NOTE DATE OF SERVICE: 09/26/2020 This 74-year-old gentleman who was admitted with severe back pain is being closely monitored at this time. The patient is slated to have MRI today per Orthopedic surgery. The patient has significant right leg radiculopathy. The patient was started on IV steroids. Blood sugar is elevated more than 500. Insulin drip was initiated. Past medical history reviewed. REVIEW OF SYSTEMS: CARDIOVASCULAR system: No angina. RESPIRATORY: As mentioned earlier. GI: As mentioned earlier. : No dysuria. NERVOUS SYSTEM: No numbness or weakness. CURRENT MEDICATIONS: Reviewed and include: Tylenol, [place], aspirin, Lipitor, Plavix, Valium, Glucotrol, Solu- Medrol. Toprol-XL. PHYSICAL EXAM: Patient is alert, oriented x 3. Pulse 97, blood pressure 120/60. Respiration 18, temperature 98.4, pulse ox 97% on room air. HEENT: Conjunctivae normal. NECK: No JVD. CARDIOVASCULAR: S1, S2 muffled. RESPIRATORY SYSTEM: Breath sounds diminished at the bases. Bilateral scattered rhonchi and crackles. ABDOMEN: Soft. NERVOUS SYSTEM: No focal deficits. LABS: Accu-Cheks 469, 423, 374. Platelets 130, sodium 130, potassium 6. ASSESSMENT: 1. Severe back pain, degenerative joint disease, right leg radiculopathy with failure of outpatient treatment and severe gait dysfunction. 2. Diabetes mellitus type 2 uncontrolled with hyperglycemia secondary to steroids. 3. Hyperkalemia, mild. 4. Hyponatremia. 5. Acute renal failure. 6. Failure of outpatient treatment. 7. History of back surgery. 8. History of coronary artery disease/stent. 9. Remote history of nicotine dependence. 10.FULL CODE. RECOMMENDATIONS AND DISCUSSION: Continue current medications, management and symptomatic treatment. Continue steroids. Continue symptomatic treatment of pain. MRI per Orthopedic surgery. Otherwise, continue with insulin drip. Guarded prognosis because of multiple complex medical issues. Further recommendations to follow. MMODL / IJN: [id number] /
[2020-09-26 19:51] LABS: Glucose,Whole Blood 417 mg/dL (75-99)
[2020-09-26 20:44] LABS: Glucose,Whole Blood 350 mg/dL (75-99)
[2020-09-26] MEDS: HYDROcodone/APAP 5-325MG 1 EACH TAB PO PRN (20:45)
[2020-09-26 21:30] LABS: Glucose,Whole Blood 340 mg/dL (75-99)
[2020-09-26] MEDS: CYCLOBENZAPRINE 5 MG TAB PO SCH (21:46)
[2020-09-26 22:01] LABS: Glucose,Whole Blood 292 mg/dL (75-99)
[2020-09-26 22:21] LABS: Glucose,Whole Blood 276 mg/dL (75-99)
[2020-09-26 22:57] LABS: Glucose,Whole Blood 234 mg/dL (75-99)
[2020-09-27 01:03] LABS: Glucose,Whole Blood 148 mg/dL (75-99)
[2020-09-27] MEDS: methylPREDNISolone SOD SUCCI 125 MG/2 ML VIAL IV SCH ×3 (01:15→13:22)
[2020-09-27 03:12] LABS: Glucose,Whole Blood 132 mg/dL (75-99)
[2020-09-27 05:05] LABS: Glucose,Whole Blood 154 mg/dL (75-99)
[2020-09-27] MEDS: HYDROcodone/APAP 5-325MG 1 EACH TAB PO PRN (05:10)
[2020-09-27 06:59] LABS: Basophils % (A) 0 %; Eosinophils % (A) 0 %; HCT 36.8 % (39.0-53.0); HGB 12.8 gm/dL (13.0-17.5); Lymphocytes # (A) 0.9 k/uL (1.0-4.8); Lymphocytes % (A) 6 %; MCH 30.2 pg (25.0-35.0); MCHC 34.8 g/dL (31.0-37.0); Mean Platelet Volume 7.1; Monocytes # (A) 0.5 k/uL (0-1.0); Monocytes % (A) 3 %; Neutrophils # (A) 14.2 k/uL (1.3-7.7); Neutrophils % (A) 91 %; Platelet Count 151 k/uL (150-450); RBC 4.24 m/uL (4.30-5.90); RDW 12.6 % (11.5-15.5); WBC 15.7 k/uL (3.8-10.6)
[2020-09-27 07:38] LABS: Glucose,Whole Blood 200 mg/dL (75-99)
[2020-09-27] MEDS: CHOLECALCIFEROL 1,000 UNIT TAB PO SCH (07:50)
[2020-09-27] MEDS: ASCORBIC ACID 500 MG TAB PO SCH (07:50)
[2020-09-27] MEDS: ATORVASTATIN 40 MG TAB PO SCH (07:50)
[2020-09-27] MEDS: MAGNESIUM OXIDE 400 MG TAB PO SCH (07:50)
[2020-09-27] MEDS: LORATADINE 10 MG TAB PO SCH (07:50)
[2020-09-27] MEDS: ASPIRIN 81 MG PO SCH (07:50)
[2020-09-27] MEDS: METOPROLOL SUCCINATE (ER) 25 MG TAB.ER.24H PO SCH (07:50)
[2020-09-27] MEDS: CLOPIDOGREL 75 MG TAB PO SCH (07:50)
[2020-09-27] MEDS: HEPARIN SODIUM,PORCINE 5,000 UNIT/ML 1 ML VIAL SQ SCH ×2 (07:50→20:15)
[2020-09-27] MEDS: MULTIVITAMINS, THERA 1 EACH TAB PO SCH (07:50)
[2020-09-27] MEDS: glipiZIDE 10 MG TAB PO SCH (07:50)
[2020-09-27 09:59] LABS: Glucose,Whole Blood 208 mg/dL (75-99)
--- NOTE | 2020-09-27 10:08 | P.PN ---
Subjective Progress Note Date: 09/27/20 This patient is a 80-year-old male with past medical history of diabetes and CAD with stent that presented to [facility] yesterday with complaints of low back pain with radiation into his right leg. The patient states he has a history of back surgery about 8-10 years ago by a surgeon in [facility]. He states he has not seen the surgeon in years, patient states he has had no issues with back pain or leg pain until about a week-two weeks ago. Patient states there was no fall or injuries. He states his pain began in the low back and began to radiate into the right thigh. He states he initially contacted his PCP about this pain. Patient also states he was seen at [facility] ER last week, and was given a shot of medication and discharged. He states his pain continued, therefore he came to [facility] ER on Saturday09/21/20, CT of the lumbar spine was performed and revealed multilevel degenerative changes, Doppler ultrasound of the right lower extremity revealed no evidence for DVT. Patient was discharged with instructions to follow-up with a spine surgeon on an outpatient basis. Patient states his pain became so severe this morning, he again returned to the ER. Patient was admitted under the care of internal medicine with a consult placed to Dr. Pryor for evaluation of his continuing back pain. At the time of my exam, patient is complaining of right thigh pain, and very mild low back pain. He states his pain has improved [facility]. He denies fevers, chills, nausea, vomiting, feelings of generalized malaise. He states besides his pain, he is feeling well. He denies hip or knee pain, he denies any significant pain with ambulation. He denies saddle paresthesias, he denies bowel or bladder incontinence. Patient has no additional complaints at the time of my exam. 09/27/20: The patient is seen and examined bedside this morning. He states his back pain, and right thigh pain is improved compared to yesterday. He has no new complaints today. He is able to ambulate without significant pain or issues. He is urinating without issues. He denies bowel or bladder incontinence. He denies saddle paresthesias. He denies fevers, chills. Vital signs stable. Objective - Vital Signs Vital signs: Vital Signs Temp 97.9 F 09/27/20 07:38 Pulse 71 09/27/20 07:38 Resp 16 09/27/20 07:38 BP 95/52 09/27/20 07:38 Pulse Ox 93 L 09/27/20 07:38 Intake & Output 09/26/20 09/27/20 09/27/20 18:59 06:59 18:59 Intake Total 14.677 54.428 3.975 Balance 14.677 54.428 3.975 Weight 74.389 kg Intake: Intake, IV Titration 14.677 54.428 3.975 Amount Insulin Regular 100 unit 14.677 54.428 3.975 In Sodium Chloride 0.9% 100 ml @ Titrate IV .Q0M HAJA Rx#:[id number] Other: # Voids 1 - Exam On examination, the patient is sitting up in the bedside chair in no apparent distress. He is alert and orientated 3. His head appears normocephalic and atraumatic. His breathing appears nonlabored. On inspection of the lower back, there is no erythema, ecchymosis, skin discoloration. There were no open wounds or lacerations. There are no areas of warmth or fluctuance. There is a well-healed incision in the area of the lumbar spine with no evidence of infection. There is very mild pain to palpation of the lumbar spine. Non-tender to palpation of the cervical and thoracic spine. No obvious deformities or step- offs. No pain to palpation in the right hip, thigh, knee. No pain with passive range of motion of the right hip, knee, or ankle. Patient is able to perform independent straight leg raises bilaterally, without significant back pain. Patient has good strength with dorsiflexion and plantar flexion of the bilateral ankles, no neurologic deficits noted. Motor and sensory function appear intact of the bilateral lower extremities. The bilateral lower extremities are warm and well-perfused with brisk capillary refill distally. The bilateral calves are soft and non-tender to palpation bilaterally. - Labs CBC & Chem 7: 09/27/20 06:32 09/26/20 05:15 Labs: Abnormal Lab Results - Last 24 Hours (Table) 09/26/20 09/26/20 09/26/20 Range/Units 12:54 14:05 14:41 WBC (3.8-10.6) k/uL RBC (4.30-5.90) m/uL Hgb (13.0-17.5) gm/dL Hct (39.0-53.0) % Neutrophils # (1.3-7.7) k/uL Lymphocytes # (1.0-4.8) k/uL POC Glucose (mg/dL) 569 H >600 H 535 H (75-99) mg/dL 09/26/20 09/26/20 09/26/20 Range/Units 15:10 15:43 16:08 WBC (3.8-10.6) k/uL RBC (4.30-5.90) m/uL Hgb (13.0-17.5) gm/dL Hct (39.0-53.0) % Neutrophils # (1.3-7.7) k/uL Lymphocytes # (1.0-4.8) k/uL POC Glucose (mg/dL) 469 H 423 H 374 H (75-99) mg/dL 09/26/20 09/26/20 09/26/20 Range/Units 17:49 18:34 19:40 WBC (3.8-10.6) k/uL RBC (4.30-5.90) m/uL Hgb (13.0-17.5) gm/dL Hct (39.0-53.0) % Neutrophils # (1.3-7.7) k/uL Lymphocytes # (1.0-4.8) k/uL POC Glucose (mg/dL) 381 H 476 H 417 H (75-99) mg/dL 09/26/20 09/26/20 09/26/20 Range/Units 20:42 21:19 21:50 WBC (3.8-10.6) k/uL RBC (4.30-5.90) m/uL Hgb (13.0-17.5) gm/dL Hct (39.0-53.0) % Neutrophils # (1.3-7.7) k/uL Lymphocytes # (1.0-4.8) k/uL POC Glucose (mg/dL) 350 H 340 H 292 H (75-99) mg/dL 09/26/20 09/26/20 09/27/20 Range/Units 22:20 22:51 01:01 WBC (3.8-10.6) k/uL RBC (4.30-5.90) m/uL Hgb (13.0-17.5) gm/dL Hct (39.0-53.0) % Neutrophils # (1.3-7.7) k/uL Lymphocytes # (1.0-4.8) k/uL POC Glucose (mg/dL) 276 H 234 H 148 H (75-99) mg/dL 09/27/20 09/27/20 09/27/20 Range/Units 03:10 05:01 06:32 WBC 15.7 H (3.8-10.6) k/uL RBC 4.24 L (4.30-5.90) m/uL Hgb 12.8 L (13.0-17.5) gm/dL Hct 36.8 L (39.0-53.0) % Neutrophils # 14.2 H (1.3-7.7) k/uL Lymphocytes # 0.9 L (1.0-4.8) k/uL POC Glucose (mg/dL) 132 H 154 H (75-99) mg/dL 09/27/20 09/27/20 Range/Units 07:37 09:58 WBC (3.8-10.6) k/uL RBC (4.30-5.90) m/uL Hgb (13.0-17.5) gm/dL Hct (39.0-53.0) % Neutrophils # (1.3-7.7) k/uL Lymphocytes # (1.0-4.8) k/uL POC Glucose (mg/dL) 200 H 208 H (75-99) mg/dL - Imaging and Cardiology MRI lumbar spine with and without contrast 09/26/[address] Pryor. Assessment and Plan Assessment: Low back pain with right lower extremity radiculopathy Degenerative disc disease, spinal stenosis History of lumbar spine surgery 8-10 years ago at an outside facility Plan: - MRI findings were discussed with the patient. MRI was reviewed in detail with Dr. Pryor. No surgical intervention is planned at this time. - Recommended conservative treatment. Physical therapy has been ordered to increase mobilization as tolerated. We will also consult pain management to evaluate for possible injections. - Medical management per admitting team. - We will continue to follow patient peripherally and make recommendations as needed.
[2020-09-27 10:14] LABS: African American GFR (CKD) 40.9 (60.0-200.0); Anion Gap 4.9 mmol/L (4.00-12.00); Calcium 9.1 mg/dL (8.7-10.3); Carbon Dioxide 27.1 mmol/L (21.6-31.8); Non-African American GFR(CKD) 35.3 (60.0-200.0); Potassium 4.5 mmol/L (3.5-5.5)
[2020-09-27] MEDS: NON FORMULARY DRUG (Omega-3 Acid Ethyl Esters [Lovaza] 1 GM Capsule) PO SCH ×2 (10:58→20:17)
[2020-09-27 12:16] LABS: Glucose,Whole Blood 180 mg/dL (75-99)
[2020-09-27] MEDS: INSULIN REGULAR 100 UNIT in SODIUM CHLORIDE 0.9% 100 ML IV SCH (13:32)
[2020-09-27 14:01] LABS: Glucose,Whole Blood 251 mg/dL (75-99)
--- NOTE | 2020-09-27 14:17 | P.PAINCN ---
History of Present Illness - Reason for Consult Consult date: 09/27/20 - History of Present Illness 81-year-old male with a past medical history of diabetes and coronary artery disease with a stent on Plavix and presented to the ER on 09/25/2020 with complaints of low back pain radiation into his right leg. His past medical history also includes a history of back surgery on 8-10 years ago but he is on sure what kind of surgery had. His pain most recently started about a week to 2 weeks ago and there is no inciting incident. His pain started in his low back and radiated to his right anterior thigh. He had gone to the ER [facility] and was given a shot of some type of medication and discharged. His pain was unrelenting so he came to the ER here. He was seen by Dr. Pryro deemed him not a surgical candidate and to be referred to pain management My discussion with him the patient so that his pain is significantly better. His pain is currently 2 out of 10 located in the low back with radiation to the anterior thigh. He said his pain is much better since he's been admitted to the hospital. In general pain is described as sharp and stabbing and gets worse with activity and better with rest. She does not take any pain medication at home and does not see a pain management physician. Has not seen his surgeon in some time. He does not endorse taking pain medication at home although his chart notes that he takes Flexeril and [place]. In addition to above, 13-point review of systems is also negative for chest pain, shortness of breath, changes in vision, changes in hearing, new onset weakness, abdominal pain, diarrhea, extreme fatigue, malaise, fever, skin changes, homicidal or suicidal ideation, or bowel or bladder incontinence. Physical exam: Vital Signs: Reviewed in EMR GENERAL: Well appearing, in no acute distress PSYCH: Mood and affect is appropriate. Awake, alert, and oriented SKIN: Skin color, texture, turgor normal, no rashes or lesions HEENT: Normocephalic, atraumatic. EOM intact CV: No pedal edema RESP: Respirations are unlabored, no audible wheezing GI: Abdomen non-distended MUSCULOSKELETAL: Bilateral upper and lower extremity strength is normal and symmetric. No atrophy or tone abnormalities are noted. Well-healed incision in the lumbar spine Lumbar spine: Straight leg raising in the sitting position is negative for radi cular pain. No pain to palpation over the lumbar spine and paraspinous muscles. Negative for pain with facet loading and back extension/rotation. Normal range of motion without pain reproduction Buttocks: No pain to palpation over the PSIS, Iveth test is negative Extremities: Peripheral joint ROM is full and pain free without obvious instability or laxity in all four extremities. No edema or skin discolorations noted. Gait: Gait is normal NEUR: Bilateral upper and lower extremity coordination and muscle stretch reflexes are physiologic and symmetric. Negative clonus. No loss of sensation is noted. Cranial nerves are grossly intact. Imaging: MRI Lumbar Spine: L1-L2: Posterior disc bulge causing anterior mass effect on thecal sac. Facet arthropathy causes posterior-lateral mass effect on the thecal sac causing trefoil appearance, circumferential extensive endplate discomfort encroaches somewhat on the neural foramina greater on the left and right. No significant stenosis L2-L3 posterior extension endplate discomfort is causes mild anterior mass effect on the thecal sac. Facet arthropathy with hypertrophy of the ligamentum flavum causes posterior-lateral mass effect on the thecal sac with no significant spinal canal stenosis or foraminal encroachment L3-L4: Mild listhesis contributes to cause some moderate to severe spinal stenosis, there is facet arthropathy causing posterior-lateral mass effect on the thecal sac, circumferential posterior disc bulge causing anterior mass effect on the thecal sac. Foraminal encroachment is greater on the right likely contributed by scoliosis L4 5: Circumferential extension of endplate is complex [place] foraminal encroachment greater on the left. Facet arthropathy causing some mild lateral mass effect on thecal sac. Circumferential disc bulge extends for the left foramen, there is left lateral disc herniation [place]. L5-S1 facet arthropathy changes present, no significant central canal stenosis, no evidence of foraminal encroachment, circumferential posterior disc bulge extends posteriorly Partial laminectomies L4-L5 Assessment: 1. Lumbar spinal stenosis Plan: - At this point she feels that he is doing much better and that his pain is well controlled. I would not do an epidural for him as an inpatient given that he is on Plavix and would have to hold it for a minimum of 7 days prior to any epidural injection. - At this point I would not make any adjustments as medication regimen given that his pain is well controlled - I will put information for our pain clinic and his discharge notes and educated the patient he can follow-up with us as needed Thank you for the referral. Any further questions please contact me. Past Medical History Past Medical History: Diabetes Mellitus History of Any Multi-Drug Resistant Organisms: None Reported Past Surgical History: Back Surgery, Heart Catheterization With Stent Additional Past Surgical History / Comment(s): stents x 2, skin CA removed, Date of Last Stent Placement:: 2019 Past Psychological History: No Psychological Hx Reported Smoking Status: Former smoker Past Alcohol Use History: None Reported Past Drug Use History: None Reported Medications and Allergies Home Medications Medication Instructions Recorded Confirmed Type Ascorbic Acid [Vitamin C] 500 mg PO DAILY 09/21/20 09/25/20 History Aspirin 81 mg PO DAILY 09/21/20 09/25/20 History Cholecalciferol [Vitamin D3 (25 1,000 unit PO DAILY 09/21/20 09/25/20 History Mcg = 1000 Iu)] Clopidogrel [Plavix] 75 mg PO DAILY 09/21/20 09/25/20 History Co Q-10 30mg 30 mg PO TID 09/21/20 09/25/20 History Cyclobenzaprine [Flexeril] 5 mg PO HS 09/21/20 09/25/20 History Diazepam [Valium] 5 mg PO Q8H PRN 3 Days #9 tab 09/21/20 09/25/20 Rx HYDROcodone/APAP 5-325MG [[place] 1 tab PO Q4HR PRN 3 Days #18 tab 09/21/20 09/25/20 Rx 5-325] Loratadine [Claritin] 10 mg PO DAILY 09/21/20 09/25/20 History Magnesium Oxide [Mag-Ox] 400 mg PO DAILY 09/21/20 09/25/20 History Metoprolol Succinate [Toprol XL] 25 mg PO DAILY 09/21/20 09/25/20 History Multivitamins, Thera [Multivitamin 1 tab PO DAILY 09/21/20 09/25/20 History (formulary)] Nitroglycerin Sl Tabs [Nitrostat] 0.4 mg SUBLINGUAL Q5M PRN 09/21/20 09/25/20 History [place]-3 Acid Ethyl Esters [Lovaza] 2 gm PO BID 09/21/20 09/25/20 History [place]-3/Dha/Epa/Fish Oil [Fish Oil 1 cap PO DAILY 09/21/20 09/25/20 History 500 mg Softgel] Omeprazole [PriLOSEC] 20 mg PO DAILY 09/21/20 09/25/20 History Rosuvastatin [Crestor] 20 mg PO DAILY 09/21/20 09/25/20 History glipiZIDE [Glucotrol] 10 mg PO DAILY 09/21/20 09/25/20 History Insulin NPH Human Isophane See Protocol SQ HS 09/26/20 09/26/20 History [NovoLIN N] Insulin Regular, Human [NovoLIN R] See Protocol SQ AC-TID 09/26/20 09/26/20 History predniSONE [Deltasone] 20 mg PO DIRECTED #24 tab 09/27/20 Rx predniSONE [Deltasone] 20 mg PO DAILY #24 tab 09/27/20 Rx Allergies Allergy/AdvReac Type Severity Reaction Status Date / Time No Known Allergies Allergy Verified 09/25/20 18:32 Physical Exam Vitals: Vital Signs Temp Pulse Pulse Resp BP BP Pulse Ox 09/27/20 07:38 97.9 F 71 16 95/52 93 L 09/27/20 01:00 97.7 F 75 16 113/61 97 09/27/20 00:49 18 09/26/20 19:40 84 18 125/68 94 L Intake and Output 09/26/20 09/27/20 09/27/20 22:59 06:59 14:59 Intake Total 54.730 14.375 220.592 Balance 54.730 14.375 220.592 Intake: Intake, IV Titration 54.730 14.375 20.592 Amount Insulin Regular 100 unit 54.730 14.375 20.592 In Sodium Chloride 0.9% 100 ml @ Titrate IV .Q0M [facility] Rx#:[id number] Oral 200 Other: # Voids 1 Weight 74.389 kg Results CBC & Chem 7: 09/27/20 06:32 09/27/20 06:32 Labs: Abnormal Lab Results - Last 24 Hours (Table) 09/26/20 09/26/20 09/26/20 Range/Units 14:05 14:41 15:10 WBC (3.8-10.6) k/uL RBC (4.30-5.90) m/uL Hgb (13.0-17.5) gm/dL Hct (39.0-53.0) % Neutrophils # (1.3-7.7) k/uL Lymphocytes # (1.0-4.8) k/uL BUN (9.0-27.0) mg/dL Creatinine (0.6-1.5) mg/dL Est GFR (CKD-EPI)AfAm (60.0-200.0) Est GFR (CKD-EPI)NonAf (60.0-200.0) BUN/Creatinine Ratio (12.00-20.00) Ratio Glucose (70-110) mg/dL POC Glucose (mg/dL) >600 H 535 H 469 H (75-99) mg/dL 09/26/20 09/26/20 09/26/20 Range/Units 15:43 16:08 17:49 WBC (3.8-10.6) k/uL RBC (4.30-5.90) m/uL Hgb (13.0-17.5) gm/dL Hct (39.0-53.0) % Neutrophils # (1.3-7.7) k/uL Lymphocytes # (1.0-4.8) k/uL BUN (9.0-27.0) mg/dL Creatinine (0.6-1.5) mg/dL Est GFR (CKD-EPI)AfAm (60.0-200.0) Est GFR (CKD-EPI)NonAf (60.0-200.0) BUN/Creatinine Ratio (12.00-20.00) Ratio Glucose (70-110) mg/dL POC Glucose (mg/dL) 423 H 374 H 381 H (75-99) mg/dL 09/26/20 09/26/20 09/26/20 Range/Units 18:34 19:40 20:42 WBC (3.8-10.6) k/uL RBC (4.30-5.90) m/uL Hgb (13.0-17.5) gm/dL Hct (39.0-53.0) % Neutrophils # (1.3-7.7) k/uL Lymphocytes # (1.0-4.8) k/uL BUN (9.0-27.0) mg/dL Creatinine (0.6-1.5) mg/dL Est GFR (CKD-EPI)AfAm (60.0-200.0) Est GFR (CKD-EPI)NonAf (60.0-200.0) BUN/Creatinine Ratio (12.00-.00) Ratio Glucose (70-110) mg/dL POC Glucose (mg/dL) 476 H 417 H 350 H (75-99) mg/dL 09/26/20 09/26/20 09/26/20 Range/Units 21:19 21:50 22:20 WBC (3.8-10.6) k/uL RBC (4.30-5.90) m/uL Hgb (13.0-17.5) gm/dL Hct (39.0-53.0) % Neutrophils # (1.3-7.7) k/uL Lymphocytes # (1.0-4.8) k/uL BUN (9.0-27.0) mg/dL Creatinine (0.6-1.5) mg/dL Est GFR (CKD-EPI)AfAm (60.0-200.0) Est GFR (CKD-EPI)NonAf (60.0-200.0) BUN/Creatinine Ratio (.00-.00) Ratio Glucose (70-110) mg/dL POC Glucose (mg/dL) 340 H 292 H 276 H (75-99) mg/dL 09/26/20 09/27/20 09/27/20 Range/Units 22:51 01:01 03:10 WBC (3.8-10.6) k/uL RBC (4.30-5.90) m/uL Hgb (13.0-17.5) gm/dL Hct (39.0-53.0) % Neutrophils # (1.3-7.7) k/uL Lymphocytes # (1.0-4.8) k/uL BUN (9.0-27.0) mg/dL Creatinine (0.6-1.5) mg/dL Est GFR (CKD-EPI)AfAm (60.0-200.0) Est GFR (CKD-EPI)NonAf (60.0-200.0) BUN/Creatinine Ratio (.00-.00) Ratio Glucose (70-110) mg/dL POC Glucose (mg/dL) 234 H 148 H 132 H (75-99) mg/dL 09/27/20 09/27/20 09/27/20 Range/Units 05:01 06:32 06:32 WBC 15.7 H (3.8-10.6) k/uL RBC 4.24 L (4.30-5.90) m/uL Hgb 12.8 L (13.0-17.5) gm/dL Hct 36.8 L (39.0-53.0) % Neutrophils # 14.2 H (1.3-7.7) k/uL Lymphocytes # 0.9 L (1.0-4.8) k/uL BUN 63.0 H (9.0-27.0) mg/dL Creatinine 1.8 H (0.6-1.5) mg/dL Est GFR (CKD-EPI)AfAm 40.9 L (60.0-200.0) Est GFR (CKD-EPI)NonAf 35.3 L (60.0-200.0) BUN/Creatinine Ratio 35.00 H (12.00-20.00) Ratio Glucose 169 H (70-110) mg/dL POC Glucose (mg/dL) 154 H (75-99) mg/dL 09/27/20 09/27/20 09/27/20 Range/Units 07:37 09:58 12:14 WBC (3.8-10.6) k/uL RBC (4.30-5.90) m/uL Hgb (13.0-17.5) gm/dL Hct (39.0-53.0) % Neutrophils # (1.3-7.7) k/uL Lymphocytes # (1.0-4.8) k/uL BUN (9.0-27.0) mg/dL Creatinine (0.6-1.5) mg/dL Est GFR (CKD-EPI)AfAm (60.0-200.0) Est GFR (CKD-EPI)NonAf (60.0-200.0) BUN/Creatinine Ratio (12.00-20.00) Ratio Glucose (70-110) mg/dL POC Glucose (mg/dL) 200 H 208 H 180 H (75-99) mg/dL 09/27/20 Range/Units 13:57 WBC (3.8-10.6) k/uL RBC (4.30-5.90) m/uL Hgb (13.0-17.5) gm/dL Hct (39.0-53.0) % Neutrophils # (1.3-7.7) k/uL Lymphocytes # (1.0-4.8) k/uL BUN (9.0-27.0) mg/dL Creatinine (0.6-1.5) mg/dL Est GFR (CKD-EPI)AfAm (60.0-200.0) Est GFR (CKD-EPI)NonAf (60.0-200.0) BUN/Creatinine Ratio (12.00-20.00) Ratio Glucose (70-110) mg/dL POC Glucose (mg/dL) 251 H (75-99) mg/dL PQRS Measure Charge Sheet PQRS Narrative: Do You Want the Pneumonia No Vaccine AT THIS TIME? Blood Pressure [Right Arm] 95/52 Blood Pressure 125/68 Pain Intensity [Back] 3 Pain Intensity 2 Pain Scale Used Numeric (1 - 10) Scale Used Numeric (1 - 10) Home Medications: Ambulatory Orders Ascorbic Acid [Vitamin C] 500 mg PO DAILY 09/21/20 Aspirin 81 mg PO DAILY 09/21/20 Cholecalciferol [Vitamin D3 (25 Mcg = 1000 Iu)] 1,000 unit PO DAILY 09/21/20 Clopidogrel [Plavix] 75 mg PO DAILY 09/21/20 Co Q-10 30mg 30 mg PO TID 09/21/20 Cyclobenzaprine [Flexeril] 5 mg PO HS 09/21/20 Diazepam [Valium] 5 mg PO Q8H PRN 3 Days #9 tab 09/21/20 HYDROcodone/APAP 5-325MG [[place] 5-325] 1 tab PO Q4HR PRN 3 Days #18 tab 09/21/20 Loratadine [Claritin] 10 mg PO DAILY 09/21/20 Magnesium Oxide [Mag-Ox] 400 mg PO DAILY 09/21/20 Metoprolol Succinate [Toprol XL] 25 mg PO DAILY 09/21/20 Multivitamins, Thera [Multivitamin (formulary)] 1 tab PO DAILY 09/21/20 Nitroglycerin Sl Tabs [Nitrostat] 0.4 mg SUBLINGUAL Q5M PRN 09/21/20 [place]-3 Acid Ethyl Esters [Lovaza] 2 gm PO BID 09/21/20 [place]-3/Dha/Epa/Fish Oil [Fish Oil 500 mg Softgel] 1 cap PO DAILY 09/21/20 Omeprazole [PriLOSEC] 20 mg PO DAILY 09/21/20 Rosuvastatin [Crestor] 20 mg PO DAILY 09/21/20 glipiZIDE [Glucotrol] 10 mg PO DAILY 09/21/20 Insulin NPH Human Isophane [NovoLIN N] See Protocol SQ HS 09/26/20 Insulin Regular, Human [NovoLIN R] See Protocol SQ AC-TID 09/26/20 predniSONE [Deltasone] 20 mg PO DIRECTED #24 tab 09/27/20 predniSONE [Deltasone] 20 mg PO DAILY #24 tab 09/27/20
[2020-09-27] MEDS: methylPREDNISolone SOD SUCCI 40 MG/ML 1 ML VIAL IV SCH ×2 (15:36→23:55)
[2020-09-27 16:25] LABS: Glucose,Whole Blood 220 mg/dL (75-99)
[2020-09-27 18:11] LABS: Glucose,Whole Blood 212 mg/dL (75-99)
--- NOTE | 2020-09-27 19:43 | PN ---
PROGRESS NOTE DATE OF SERVICE: 09/27/2020 This 80-year-old gentleman who was admitted with severe back pain and DJD, also had right leg radiculopathy. The patient started on IV steroids. The lumbar spine MRI was repeated which showed evidence of significant DJD and spinal stenosis. Dr. Pryor has seen the patient and pain management consult was also sought. Dr. Pryor recommended interventional Pain Management and surgical intervention for decompression and possible fusion if symptoms were to persist or worsen. The patient is on IV insulin drip also. PAST MEDICAL HISTORY: Reviewed. REVIEW OF SYSTEMS: CARDIOVASCULAR: No angina. GI: As mentioned earlier. : No dysuria. ENDOCRINE: As mentioned earlier. CURRENT MEDICATIONS: Reviewed include Tylenol, [place], aspirin, Lipitor, vitamin D3, Solu-Medrol, Dilaudid. Doses reviewed. PHYSICAL EXAM: Patient is alert and oriented x3. Pulse 79, blood pressure 118/77, respirations 16, temp 97.4, pulse ox 94% on room air HEENT: Conjunctivae normal. Oral mucosa moist. NECK: No jugular venous distention. No lymph node enlargement. CARDIOVASCULAR: S1, S2, muffled. No S3, no S4, RESPIRATORY: Diminished breath sounds at the bases. Scattered rhonchi and crackles. ABDOMEN: Soft, nontender. LEGS: No edema, no swelling. NERVOUS SYSTEM: No focal motor or sensory deficits. LABS: WBC 15.2, hemoglobin 12.8, sodium 137, potassium 4.5. Accu-Cheks noted. ASSESSMENT: 1. Severe back pain, degenerative joint disease and right leg radiculopathy with spinal stenosis with failure of outpatient treatment and severe gait dysfunction, on IV insulin drip. 2. Diabetes mellitus type 2, uncontrolled with hyperglycemia secondary to steroids. 3. Hyperkalemia, mild, improved. 4. Hyponatremia. 5. Acute renal failure. 6. Failure of outpatient treatment. 7. History of back surgery. 8. History of CAD/stent. 9. Remote history of nicotine dependence. 10.FULL CODE. RECOMMENDATIONS AND DISCUSSION: I recommend to continue current management and symptomatic treatment. Otherwise, cut down the dose of IV steroids and PT/OT evaluation. Closely follow with Dr. Estrada, Pain Management consultation. Guarded prognosis because of multiple complex medical issues. Further recommendations to follow. MMODL / IJN: [id number] /
[2020-09-27 20:10] LABS: Glucose,Whole Blood 218 mg/dL (75-99)
[2020-09-27] MEDS: CYCLOBENZAPRINE 5 MG TAB PO SCH (20:15)
[2020-09-27 22:07] LABS: Glucose,Whole Blood 174 mg/dL (75-99)
[2020-09-27 22:35] LABS: Appearance,Urine Clear (Clear); Bilirubin,Urine Negative (Negative); Blood,Urine Trace (Negative); Color,Urine Light Yellow; Glucose,Urine (UA) 1+ (Negative); Ketones,Urine Negative (Negative); Leukocyte Esterase,Urine Negative (Negative); Nitrite,Urine Negative (Negative); PH, Urine 5.5 (5.0-8.0); Protein,Urine Trace (Negative); RBC,Urine 2 /hpf (0-5); Specific Gravity,Urine 1.018 (1.001-1.035); WBC,Urine 1 /hpf (0-5)
[2020-09-27 23:56] LABS: Glucose,Whole Blood 167 mg/dL (75-99)
[2020-09-28 02:07] LABS: Glucose,Whole Blood 155 mg/dL (75-99)
[2020-09-28 04:09] LABS: Glucose,Whole Blood 149 mg/dL (75-99)
[2020-09-28 06:03] LABS: Glucose,Whole Blood 178 mg/dL (75-99)
[2020-09-28 08:04] LABS: Glucose,Whole Blood 178 mg/dL (75-99)
[2020-09-28] MEDS: methylPREDNISolone SOD SUCCI 40 MG/ML 1 ML VIAL IV SCH (08:15)
[2020-09-28] MEDS: MAGNESIUM OXIDE 400 MG TAB PO SCH (08:16)
[2020-09-28] MEDS: METOPROLOL SUCCINATE (ER) 25 MG TAB.ER.24H PO SCH (08:16)
[2020-09-28] MEDS: glipiZIDE 10 MG TAB PO SCH (08:16)
[2020-09-28] MEDS: ASCORBIC ACID 500 MG TAB PO SCH (08:16)
[2020-09-28] MEDS: LORATADINE 10 MG TAB PO SCH (08:16)
[2020-09-28] MEDS: ATORVASTATIN 40 MG TAB PO SCH (08:16)
[2020-09-28] MEDS: HEPARIN SODIUM,PORCINE 5,000 UNIT/ML 1 ML VIAL SQ SCH ×2 (08:16→20:56)
[2020-09-28] MEDS: PANTOPRAZOLE 40 MG TABLET PO SCH (08:16)
[2020-09-28] MEDS: MULTIVITAMINS, THERA 1 EACH TAB PO SCH (08:16)
[2020-09-28] MEDS: CHOLECALCIFEROL 1,000 UNIT TAB PO SCH (08:16)
[2020-09-28] MEDS: CLOPIDOGREL 75 MG TAB PO SCH (08:16)
[2020-09-28] MEDS: ASPIRIN 81 MG PO SCH (08:16)
[2020-09-28] MEDS: NON FORMULARY DRUG (Omega-3 Acid Ethyl Esters [Lovaza] 1 GM Capsule) PO SCH ×2 (08:17→20:57)
[2020-09-28 08:20] LABS: Basophils % (A) 0 %; Eosinophils % (A) 0 %; HCT 43.2 % (39.0-53.0); Lymphocytes # (A) 0.7 k/uL (1.0-4.8); Lymphocytes % (A) 4 %; MCH 31.1 pg (25.0-35.0); MCHC 34.8 g/dL (31.0-37.0); MCV 89.4 fL (80.0-100.0); Mean Platelet Volume 7.5; Monocytes # (A) 0.5 k/uL (0-1.0); Monocytes % (A) 3 %; Neutrophils # (A) 16.3 k/uL (1.3-7.7); Neutrophils % (A) 93 %; Platelet Count 189 k/uL (150-450); RBC 4.84 m/uL (4.30-5.90); WBC 17.6 k/uL (3.8-10.6)
[2020-09-28 10:06] LABS: Glucose,Whole Blood 302 mg/dL (75-99)
[2020-09-28 11:02] LABS: African American GFR (CKD) 43.8 (60.0-200.0); Anion Gap 8.8 mmol/L (4.00-12.00); BUN/Creat Ratio 35.88 Ratio (12.00-20.00); Calcium 9.1 mg/dL (8.7-10.3); Carbon Dioxide 26.2 mmol/L (21.6-31.8); Non-African American GFR(CKD) 37.8 (60.0-200.0); Potassium 4.6 mmol/L (3.5-5.5)
[2020-09-28 12:03] LABS: Glucose,Whole Blood 190 mg/dL (75-99)
[2020-09-28] MEDS: predniSONE 20 MG TAB PO SCH (12:03)
[2020-09-28] MEDS: INSULIN DETEMIR (LEVEMIR) 100 UNIT/ML SYR SQ SCH (12:03)
[2020-09-28] MEDS: INSULIN ASPART (NovoLOG) 100 UNIT/ML VIAL SQ SCH ×3 (13:32→20:56)
--- NOTE | 2020-09-28 14:14 | P.PN ---
Progress Note - Text Progress Note Date: 09/28/20 Patient is seen and examined again today. He says that he has been making some progress with the steroid medication. He has been able to get up. He says in the morning the pain starts quite manageable but it increases through the course of his day with activity. He feels he is able to manage the pain adequately with oral medications. He is not having any new changes in his lower extremities. Denies any new weakness. Denies any changes in bowel bladder function. On exam he's afebrile. He is able to lift his legs up off the bed independently. He has 5 out of 5 strength the dorsal flexion plantar flexion and EHL. His thighs and calves are soft and nontender. His back has some paravertebral spasm. His well-healed midline incision. Acute on chronic low back pain Spinal stenosis L3 4 L4 5 Lower extremity radiculopathy history of prior laminectomy decompression L4 5 Overall the patient is making some progress with conservative treatment and oral medications. I'll like him to try to mobilize further. He is not having acute neurologic loss or evidence of instability. I think that he is a candidate for interventional pain management. We will plan to see him on an outpatient basis and consider interventional treatment is necessary. I think that the patient should go through all conservative measures prior to considering any surgical intervention as surgery would be somewhat extensive with revision decompression likely fusion. He understands this. He'll plan to continue conservative management. It is okay from a spine surgery standpoint for the patient be discharged when he is safe with medicine service.
--- NOTE | 2020-09-28 15:21 | P.PN ---
Subjective Progress Note Date: 09/28/20 This is a 72-year-old male who was recently admitted with severe back pain and degenerative joint disease also with right leg radiculopathy and is being closely monitored. She was seen and evaluated by pain management Dr. Pryor and will continue with conservative management at this time and no surgical i nterventions and will follow-up in the outpatient setting. Patient is currently on an insulin drip and will be discontinued and we'll transition to long-acting Lantus 25 units daily along with sliding scale and IV steroids have been transition to oral steroids and will continue to monitor closely. PT/OT to evaluate the patient. Review of systems: Constitutional: No reports of fatigue, fever, or chills Cardiovascular: No reports of chest pain or palpitations Respiratory: No reports of shortness of breath or cough GI: No reports of nausea, vomiting, or diarrhea : No reports of dysuria or retention Neurovascular: No reports of weakness or numbness, reports generalized back pain All medications have been reviewed Active Medications Acetaminophen (Acetaminophen Tab 325 Mg Tab) 650 mg PO Q6HR PRN PRN Reason: Mild Pain or Fever > 100.5 Hydrocodone Bitart/Acetaminophen (Hydrocodone/Apap 5-325mg 1 Each Tab) 1 each PO Q4HR PRN PRN Reason: Pain Last Admin: 09/27/20 05:10 Dose: 1 each Documented by: Ascorbic Acid (Ascorbic Acid 500 Mg Tab) 500 mg PO DAILY [facility] Last Admin: 09/28/20 08:16 Dose: 500 mg Documented by: Aspirin (Aspirin 81 Mg) 81 mg PO DAILY [facility] Last Admin: 09/28/20 08:16 Dose: 81 mg Documented by: Atorvastatin Calcium (Atorvastatin 40 Mg Tab) 40 mg PO DAILY [facility] Last Admin: 09/28/20 08:16 Dose: 40 mg Documented by: Cholecalciferol (Cholecalciferol 1,000 Unit Tab) 1,000 unit PO DAILY [facility] Last Admin: 09/28/20 08:16 Dose: 1,000 unit Documented by: Clopidogrel Bisulfate (Clopidogrel 75 Mg Tab) 75 mg PO DAILY [facility] Last Admin: 09/28/20 08:16 Dose: 75 mg Documented by: Cyclobenzaprine HCl (Cyclobenzaprine 5 Mg Tab) 5 mg PO HS [facility] Last Admin: 09/27/20 20:15 Dose: 5 mg Documented by: Diazepam (Diazepam 5 Mg Tab) 5 mg PO Q8H PRN PRN Reason: Muscle Spasm Last Admin: 09/26/20 14:02 Dose: 5 mg Documented by: Glipizide (Glipizide 10 Mg Tab) 10 mg PO DAILY [facility] Last Admin: 09/28/20 08:16 Dose: 10 mg Documented by: Heparin Sodium (Porcine) (Heparin Sodium,Porcine 5,000 Unit/Ml 1 Ml Vial) 5,000 unit SQ Q12HR [facility] Last Admin: 09/28/20 08:16 Dose: 5,000 unit Documented by: Hydromorphone HCl (Hydromorphone 0.5 Mg/0.5 Ml Syringe) 0.5 mg IVP Q3HR PRN PRN Reason: Severe Pain Last Admin: 09/25/20 20:44 Dose: 0.5 mg Documented by: Sodium Chloride (Saline 0.9%) 1,000 mls @ 20 mls/hr IV .Q24H [facility] Last Admin: 09/26/20 18:41 Dose: 20 mls/hr Documented by: Insulin Aspart (Insulin Aspart (Novolog) 100 Unit/Ml Vial) 0 unit SQ ACHS [facility]; Protocol Last Admin: 09/28/20 13:32 Dose: Not Given Documented by: Insulin Detemir (Insulin Detemir (Levemir) 100 Unit/Ml Syr) 25 unit SQ DAILY@0700 [facility] Last Admin: 09/28/20 12:03 Dose: 25 unit Documented by: Loratadine (Loratadine 10 Mg Tab) 10 mg PO DAILY [facility] Last Admin: 09/28/20 08:16 Dose: 10 mg Documented by: Magnesium Oxide (Magnesium Oxide 400 Mg Tab) 400 mg PO DAILY [facility] Last Admin: 09/28/20 08:16 Dose: 400 mg Documented by: Metoprolol Succinate (Metoprolol Succinate (Er) 25 Mg Tab.Er.24h) 25 mg PO DAILY [facility] Last Admin: 09/28/20 08:16 Dose: 25 mg Documented by: Multivitamins (Multivitamins, Thera 1 Each Tab) 1 each PO DAILY [facility] Last Admin: 09/28/20 08:16 Dose: 1 each Documented by: Naloxone HCl (Naloxone 0.4 Mg/Ml 1 Ml Vial) 0.2 mg IV Q2M PRN PRN Reason: Opioid Reversal Nitroglycerin (Nitroglycerin Sl Tabs 0.4 Mg Tab) 0.4 mg SUBLINGUAL Q5M PRN PRN Reason: Chest Pain Non-Formulary Medication ([place]-3 Acid Ethyl Esters [Lovaza]) 2 gm PO BID [facility] Last Admin: 09/28/20 08:17 Dose: Not Given Documented by: Ondansetron HCl (Ondansetron 4 Mg/2 Ml Vial) 4 mg IVP Q8HR PRN PRN Reason: Nausea And Vomiting Last Admin: 09/25/20 18:32 Dose: 4 mg Documented by: Pantoprazole Sodium (Pantoprazole 40 Mg Tablet) 40 mg PO DAILY@0730 [facility] Last Admin: 09/28/20 08:16 Dose: 40 mg Documented by: Prednisone (Prednisone 20 Mg Tab) 40 mg PO DAILY [facility] Last Admin: 09/28/20 12:03 Dose: 40 mg Documented by: Temazepam (Temazepam 15 Mg Cap) 15 mg PO HS PRN PRN Reason: Insomnia Objective - Vital Signs Vital signs: Vital Signs Temp 97.4 F L 09/28/20 14:59 Pulse 76 09/28/20 14:59 Resp 18 09/28/20 14:59 BP 137/58 09/28/20 14:59 Pulse Ox 98 09/28/20 14:59 Intake & Output 09/27/20 09/28/20 09/28/20 18:59 06:59 18:59 Intake Total 239.242 185.066 564.708 Balance 239.242 185.066 564.708 Intake: Intake, IV Titration 39.242 185.066 24.708 Amount Insulin Regular 100 unit 39.242 25.066 24.708 In Sodium Chloride 0.9% 100 ml @ Titrate IV .Q0M [facility] Rx#:[id number] Sodium Chloride 0.9% 1, 160 000 ml @ 20 mls/hr IV . Q24H [facility] Rx#:[id number] Oral 200 540 Other: Voiding Method Toilet Urinal # Voids 3 3 3 - Exam Gen: This is a 80-year-old male, awake, alert and oriented 3, well-developed, well-nourished. Temp is 98.6F, pulse is 78, respirations are 20, blood pressure is 130/69, oxygen saturation is 95% on room air. HEENT: Head is atraumatic, normocephalic. Pupils equal, round. Sclerae is anicteric. NECK: Supple. No JVD. No lymphadenopathy. No thyromegaly. LUNGS: Diminished breath sounds bilaterally with some scattered rhonchi noted. No intercostal retractions. HEART: S1, S2 are muffled, no murmur noted ABDOMEN: Soft. Bowel sounds are present. No masses. No tenderness. EXTREMITIES: No pedal edema. No calf tenderness. NEUROLOGICAL: Patient is awake, alert and oriented x3. Cranial nerves 2 through 12 are grossly intact. - Labs CBC & Chem 7: 09/28/20 06:44 09/28/20 06:44 Labs: Abnormal Lab Results - Last 24 Hours (Table) 09/27/20 09/27/20 09/27/20 Range/Units 16:23 18:08 20:08 WBC (3.8-10.6) k/uL Neutrophils # (1.3-7.7) k/uL Lymphocytes # (1.0-4.8) k/uL BUN (9.0-27.0) mg/dL Creatinine (0.6-1.5) mg/dL Est GFR (CKD-EPI)AfAm (60.0-200.0) Est GFR (CKD-EPI)NonAf (60.0-200.0) BUN/Creatinine Ratio (12.00-20.00) Ratio Glucose (70-110) mg/dL POC Glucose (mg/dL) 220 H 212 H 218 H (75-99) mg/dL Urine Protein (Negative) Urine Glucose (UA) (Negative) Urine Blood (Negative) 09/27/20 09/27/20 09/27/20 Range/Units 22:06 22:10 23:55 WBC (3.8-10.6) k/uL Neutrophils # (1.3-7.7) k/uL Lymphocytes # (1.0-4.8) k/uL BUN (9.0-27.0) mg/dL Creatinine (0.6-1.5) mg/dL Est GFR (CKD-EPI)AfAm (60.0-200.0) Est GFR (CKD-EPI)NonAf (60.0-200.0) BUN/Creatinine Ratio (12.00-20.00) Ratio Glucose (70-110) mg/dL POC Glucose (mg/dL) 174 H 167 H (75-99) mg/dL Urine Protein Trace H (Negative) Urine Glucose (UA) 1+ H (Negative) Urine Blood Trace H (Negative) 09/28/20 09/28/20 09/28/20 Range/Units 02:05 04:06 06:02 WBC (3.8-10.6) k/uL Neutrophils # (1.3-7.7) k/uL Lymphocytes # (1.0-4.8) k/uL BUN (9.0-27.0) mg/dL Creatinine (0.6-1.5) mg/dL Est GFR (CKD-EPI)AfAm (60.0-200.0) Est GFR (CKD-EPI)NonAf (60.0-200.0) BUN/Creatinine Ratio (12.00-20.00) Ratio Glucose (70-110) mg/dL POC Glucose (mg/dL) 155 H 149 H 178 H (75-99) mg/dL Urine Protein (Negative) Urine Glucose (UA) (Negative) Urine Blood (Negative) 09/28/20 09/28/20 09/28/20 Range/Units 06:44 06:44 08:03 WBC 17.6 H (3.8-10.6) k/uL Neutrophils # 16.3 H (1.3-7.7) k/uL Lymphocytes # 0.7 L (1.0-4.8) k/uL BUN 61.0 H (9.0-27.0) mg/dL Creatinine 1.7 H (0.6-1.5) mg/dL Est GFR (CKD-EPI)AfAm 43.8 L (60.0-200.0) Est GFR (CKD-EPI)NonAf 37.8 L (60.0-200.0) BUN/Creatinine Ratio 35.88 H (12.00-20.00) Ratio Glucose 143 H (70-110) mg/dL POC Glucose (mg/dL) 178 H (75-99) mg/dL Urine Protein (Negative) Urine Glucose (UA) (Negative) Urine Blood (Negative) 09/28/20 09/28/20 Range/Units 10:05 12:02 WBC (3.8-10.6) k/uL Neutrophils # (1.3-7.7) k/uL Lymphocytes # (1.0-4.8) k/uL BUN (9.0-27.0) mg/dL Creatinine (0.6-1.5) mg/dL Est GFR (CKD-EPI)AfAm (60.0-200.0) Est GFR (CKD-EPI)NonAf (60.0-200.0) BUN/Creatinine Ratio (12.00-20.00) Ratio Glucose (70-110) mg/dL POC Glucose (mg/dL) 302 H 190 H (75-99) mg/dL Urine Protein (Negative) Urine Glucose (UA) (Negative) Urine Blood (Negative) Assessment and Plan Assessment: Severe back pain, degenerative joint disease and right leg radiculopathy with spinal stenosis with failure of outpatient treatment and severe gait dysfunction, on IV insulin drip Diabetes mellitus type 2, uncontrolled with hyperglycemia secondary to steroids Hyperkalemia, mild, improved Hyponatremia acute renal failure Failure of outpatient treatment History back surgery History of coronary artery disease/stent Remote history of nicotine dependence Full code Recommendations and discussion: Recommend to continue current medications, management, and symptomatic treatment. Patient was seen and evaluated by Dr. Pryor and will continue with conservative management and will follow with the clinic in the outpatient setting. No surgical intervention at this time. Patient continues to be on an insulin drip and will be discontinued and will give Lantus 25 units daily and continue sliding scale. Continue to monitor blood sugars before meals at bedtime and treat accordingly. Will repeat a.m. labs and monitor closely. Prognosis is guarded. Further recommendations to follow. Possible discharge in 24 hours.
[2020-09-28 17:04] LABS: Glucose,Whole Blood 232 mg/dL (75-99)
[2020-09-28] MEDS: SODIUM CHLORIDE 0.9% 1,000 ML IV SCH (17:30)
[2020-09-28 18:44] LABS: Hemoglobin A1C 7.5 % (4.0-6.0)
[2020-09-28 20:26] LABS: Glucose,Whole Blood 313 mg/dL (75-99)
[2020-09-28] MEDS: CYCLOBENZAPRINE 5 MG TAB PO SCH (20:56)
[2020-09-29 02:32] LABS: Glucose,Whole Blood 215 mg/dL (75-99)
[2020-09-29 03:12] VITALS: RESP 18
[2020-09-29 06:48] LABS: Glucose,Whole Blood 114 mg/dL (75-99)
[2020-09-29] MEDS: INSULIN ASPART (NovoLOG) 100 UNIT/ML VIAL SQ SCH ×2 (08:44→12:02)
[2020-09-29] MEDS: PANTOPRAZOLE 40 MG TABLET PO SCH (08:52)
[2020-09-29] MEDS: predniSONE 20 MG TAB PO SCH (08:52)
[2020-09-29] MEDS: ASPIRIN 81 MG PO SCH (08:52)
[2020-09-29] MEDS: CHOLECALCIFEROL 1,000 UNIT TAB PO SCH (08:52)
[2020-09-29] MEDS: ATORVASTATIN 40 MG TAB PO SCH (08:52)
[2020-09-29] MEDS: MULTIVITAMINS, THERA 1 EACH TAB PO SCH (08:53)
[2020-09-29] MEDS: ASCORBIC ACID 500 MG TAB PO SCH (08:53)
[2020-09-29] MEDS: glipiZIDE 10 MG TAB PO SCH (08:53)
[2020-09-29] MEDS: CLOPIDOGREL 75 MG TAB PO SCH (08:53)
[2020-09-29] MEDS: LORATADINE 10 MG TAB PO SCH (08:53)
[2020-09-29] MEDS: MAGNESIUM OXIDE 400 MG TAB PO SCH (08:53)
[2020-09-29] MEDS: INSULIN DETEMIR (LEVEMIR) 100 UNIT/ML SYR SQ SCH (08:53)
[2020-09-29] MEDS: METOPROLOL SUCCINATE (ER) 25 MG TAB.ER.24H PO SCH (08:53)
[2020-09-29] MEDS: HEPARIN SODIUM,PORCINE 5,000 UNIT/ML 1 ML VIAL SQ SCH (08:54)
[2020-09-29] MEDS: NON FORMULARY DRUG (Omega-3 Acid Ethyl Esters [Lovaza] 1 GM Capsule) PO SCH (08:54)
[2020-09-29] MEDS: SODIUM CHLORIDE 0.9% 1,000 ML IV SCH (08:55)
[2020-09-29 10:44] VITALS: BP 151/78; PULSE 68; TEMP 97.5
[2020-09-29 10:54] LABS: African American GFR (CKD) 48 (>60 ml/min/1.73 sqM); Anion Gap 5 mmol/L; Blood Urea Nitrogen 51 mg/dL (9-20); Calcium 8.9 mg/dL (8.4-10.2); Carbon Dioxide 27 mmol/L (22-30); Chloride 106 mmol/L (98-107); Glucose 82 mg/dL (74-99); Non-African American GFR(CKD) 41 (>60 ml/min/1.73 sqM); Potassium 4.1 mmol/L (3.5-5.1); Sodium 138 mmol/L (137-145)
[2020-09-29 11:52] LABS: Glucose,Whole Blood 69 mg/dL (75-99)
--- NOTE | 2020-09-29 12:58 | P.DS ---
Providers Date of admission: 09/26/20 13:01 Expected date of discharge: 09/29/20 Attending physician: Blake Millan Consults: 09/25/20 17:18 Consult Physician Routine Consulting Provider: Pool Pryor Consult Reason/Comments: intractable back pain Do you want consulting provider notified?: Yes Primary care physician: [facility] Course: Final diagnosis Severe back pain, degenerative joint disease and right leg radiculopathy with spinal stenosis with failure of outpatient treatment and severe gait dysfunction Diabetes mellitus type 2, uncontrolled with hyperglycemia secondary to steroids Hyperkalemia, mild, improved Hyponatremia acute renal failure Failure of outpatient treatment History back surgery History of coronary artery disease/stent Remote history of nicotine dependence Full code Discharge disposition Patient is being discharged in a stable condition with guarded prognosis to home. Patient will follow-up with Dr. Villalba in the outpatient setting upon discharge. Patient also follow-up with the pain clinic and Dr. Pryor in the outpatient setting. Patient is to continue with prednisone taper until finished. Total time taken is greater than 35 minutes. History of present illness This is a 80-year-old male who was recently admitted with severe back pain and degenerative joint disease along with right leg radiculopathy and is being close ly monitored. Patient was seen and evaluated by Dr. Pryor in pain management and recommending continued conservative management at this time and will follow- up in the outpatient setting as needed. Patient continue to have elevated blood sugars and was initiated on an insulin drip. Patient is off of the drip and currently maintained on long-acting 25 units daily along with sliding scale. Patient will continue with Lantus 20 units daily along with NovoLog sliding scale. Patient instructed to continue to monitor blood sugars before meals at bedtime and keep a diary for primary care follow-up. Patient will continue with the prednisone taper in the outpatient setting upon discharge. Patient states he feels well and is anxious about going home today. Currently no reports of chest pain, shortness of breath, or palpitations. Patient is afebrile. No reports of nausea or vomiting and patient is tolerating diet. Patient will be going home today. On exam vital signs are stable. Temp is 97.5F, pulse is 68, respirations are 18, blood pressure is 151/78, oxygen saturation is 98% on room air. Cardio S1, S2 are muffled. Respiratory system shows diminished breath sounds at the bases with no wheezing or rhonchi noted. Abdomen is soft and nontender. Nervous system shows no focal deficits. Please refer to medication reconciliation sheet for a list of medications. Patient Condition at Discharge: Fair Plan - Discharge Summary Discharge Rx Participant: No New Discharge Prescriptions: New Insulin Detemir (Levemir) [Levemir] 20 unit SQ DAILY@0700 30 Days #3 syr INSULIN ASPART (NovoLOG) [NovoLOG (formulary)] 0 unit SQ ACHS 30 Days #3 vial predniSONE 10 mg PO DIRECTED #30 tab Acetaminophen Tab [Tylenol] 650 mg PO Q6HR PRN tab PRN Reason: Mild Pain Or Fever > 100.5 Continue HYDROcodone/APAP 5-325MG [White 5-325] 1 tab PO Q4HR PRN 3 Days #18 tab PRN Reason: Pain Diazepam [Valium] 5 mg PO Q8H PRN 3 Days #9 tab PRN Reason: Muscle Spasm Ascorbic Acid [Vitamin C] 500 mg PO DAILY Rosuvastatin [Crestor] 20 mg PO DAILY Omeprazole [PriLOSEC] 20 mg PO DAILY [place]-3 Acid Ethyl Esters [Lovaza] 2 gm PO BID Nitroglycerin Sl Tabs [Nitrostat] 0.4 mg SUBLINGUAL Q5M PRN PRN Reason: Chest Pain Multivitamins, Thera [Multivitamin (formulary)] 1 tab PO DAILY Metoprolol Succinate [Toprol XL] 25 mg PO DAILY Magnesium Oxide [Mag-Ox] 400 mg PO DAILY Loratadine [Claritin] 10 mg PO DAILY Cyclobenzaprine [Flexeril] 5 mg PO HS Co Q-10 30mg 30 mg PO TID Clopidogrel [Plavix] 75 mg PO DAILY Cholecalciferol [Vitamin D3 (25 Mcg = 1000 Iu)] 1,000 unit PO DAILY Aspirin 81 mg PO DAILY [place]-3/Dha/Epa/Fish Oil [Fish Oil 500 mg Softgel] 1 cap PO DAILY glipiZIDE [Glucotrol] 10 mg PO DAILY Discontinued Insulin NPH Human Isophane [NovoLIN N] See Protocol SQ HS Insulin Regular, Human [NovoLIN R] See Protocol SQ AC-TID Discharge Medication List Ascorbic Acid [Vitamin C] 500 mg PO DAILY 09/21/20 [History] Aspirin 81 mg PO DAILY 09/21/20 [History] Cholecalciferol [Vitamin D3 (25 Mcg = 1000 Iu)] 1,000 unit PO DAILY 09/21/20 [History] Clopidogrel [Plavix] 75 mg PO DAILY 09/21/20 [History] Co Q-10 30mg 30 mg PO TID 09/21/20 [History] Cyclobenzaprine [Flexeril] 5 mg PO HS 09/21/20 [History] Diazepam [Valium] 5 mg PO Q8H PRN 3 Days #9 tab 09/21/20 [Rx] HYDROcodone/APAP 5-325MG [White 5-325] 1 tab PO Q4HR PRN 3 Days #18 tab 09/21/20 [Rx] Loratadine [Claritin] 10 mg PO DAILY 09/21/20 [History] Magnesium Oxide [Mag-Ox] 400 mg PO DAILY 09/21/20 [History] Metoprolol Succinate [Toprol XL] 25 mg PO DAILY 09/21/20 [History] Multivitamins, Thera [Multivitamin (formulary)] 1 tab PO DAILY 09/21/20 [History] Nitroglycerin Sl Tabs [Nitrostat] 0.4 mg SUBLINGUAL Q5M PRN 09/21/20 [History] [place]-3 Acid Ethyl Esters [Lovaza] 2 gm PO BID 09/21/20 [History] [place]-3/Dha/Epa/Fish Oil [Fish Oil 500 mg Softgel] 1 cap PO DAILY 09/21/20 [History] Omeprazole [PriLOSEC] 20 mg PO DAILY 09/21/20 [History] Rosuvastatin [Crestor] 20 mg PO DAILY 09/21/20 [History] glipiZIDE [Glucotrol] 10 mg PO DAILY 09/21/20 [History] Acetaminophen Tab [Tylenol] 650 mg PO Q6HR PRN tab 09/29/20 [Rx] INSULIN ASPART (NovoLOG) [NovoLOG (formulary)] 0 unit SQ ACHS 30 Days #3 vial 09/29/20 [Rx] Insulin Detemir (Levemir) [Levemir] 20 unit SQ DAILY@0700 30 Days #3 syr 09/29/20 [Rx] predniSONE 10 mg PO DIRECTED #30 tab 09/29/20 [Rx] Follow up Appointment(s)/Referral(s): Pool Pryor DO [Doctor of Osteopathic Medicine] - [facility],Fouzia LOPEZ [NON-STAFF] - 1 Week (Please call to schedule your appointment) Lb Shoemaker MD [STAFF PHYSICIAN] - 10/03/20 10:00 am Bladimir Villalba MD [Primary Care Provider] - 1-2 days (Please call office to schedule your appointment. Thank you) Ambulatory/Diagnostic Orders: Basic Metabolic Panel [LAB.AMB] Time Frame: 3 Days, Location: None Selected Patient Instructions/Handouts: Lumbar Spinal Stenosis (DC), Lumbar Radiculopathy (GEN), Chronic Back Pain (DC) Activity/Diet/Wound Care/Special Instructions: Activity Limited until follow-up Follow-up with primary care provider upon discharge Follow-up with pain management in the outpatient setting Continue to monitor blood sugars before meals at bedtime and keep a diary for primary care follow-up Continue with sliding scale short acting as well as long-acting insulin Continue with prednisone taper until finished Continue current diet NovoLog sliding scale 0-150 equals 0 units 151-200 equals 2 units 201-250 equals 4 units 251-300 equals 6 units 301 to 350 equals 8 units 351-400 equals 10 units and notify primary care provider Discharge Disposition: HOME SELF-CARE
== END 2020-09-29 12:52 | disposition home or self-care (01) | DRG 552 ==
LOC: EC 16:15 → 1SOBS 17:21 → OBSVTOIN 09-26 13:01 → 4SSUR 09-26 15:55
PROVIDERS: ADMIT Hospitalist; ATTEND Hospitalist
DX: M48.061 Spinal stenosis, lumbar region without neurogenic claudication (principal); E87.1 Hypo-osmolality and hyponatremia; N17.9 Acute kidney failure, unspecified; M54.16 Radiculopathy, lumbar region; E11.65 Type 2 diabetes mellitus with hyperglycemia; E87.5 Hyperkalemia; G89.29 Other chronic pain; I25.10 Atherosclerotic heart disease of native coronary artery without angina pectoris; M19.90 Unspecified osteoarthritis, unspecified site; T38.0X5A Adverse effect of glucocorticoids and synthetic analogues, initial encounter; Z79.02 Long term (current) use of antithrombotics/antiplatelets; Z79.4 Long term (current) use of insulin; Z79.82 Long term (current) use of aspirin; Z79.899 Other long term (current) drug therapy; Z87.891 Personal history of nicotine dependence; Z95.5 Presence of coronary angioplasty implant and graft
CPT/HCPCS: 36415; 71045; 72158; 80048; 81001; 83036; 85025; 85610; 85652; 85730; 86140; 93005; 96361; 96374; 96375; 99285